=== PATIENT | female | born 1930 | race African-American/Black ===

== ENCOUNTER 2017-04-06 22:25 | Emergency (ER) | payer MEDICARE, MEDICAID ==
[~2017-04-06] VITALS: Ht 160 cm; Wt 45.4 kg
[~2017-04-06 22:25] MED LIST: ALPR0.25 PO; ASPI81CH43 PO; CEPH-37 PO; CITA10TA59 PO; CYAN500T2 PO; DONE10TA12 PO; FLUC200T35 PO; MEMA10TA PO; QUET50TA PO; RISP0.2512 PO
[2017-04-07 07:38] VITALS: BP 135/64
== END 2017-04-07 09:14 | disposition home or self-care (01) ==
LOC: EDBD 22:25 → ER 22:32
DX: S43.102A Unspecified dislocation of left acromioclavicular joint, initial encounter (principal); I25.10 Atherosclerotic heart disease of native coronary artery without angina pectoris; I25.2 Old myocardial infarction; G30.9 Alzheimer's disease, unspecified; F02.80 Dementia in other diseases classified elsewhere, unspecified severity, without behavioral disturbance, psychotic disturbance, mood disturbance, and anxiety; Z79.82 Long term (current) use of aspirin; X58.XXXA Exposure to other specified factors, initial encounter; Y93.89 Activity, other specified; Y92.89 Other specified places as the place of occurrence of the external cause; Y99.8 Other external cause status
CPT/HCPCS: 73030

== ENCOUNTER 2017-08-02 18:50 | Emergency (ER) | payer MEDICARE, MEDICAID ==
[~2017-08-02] VITALS: Ht 170.2 cm; Wt 70.3 kg
[2017-08-02 23:17] LABS: Basophils # (auto) 0.1 uL; Basophils % (auto) 1.4 % (0.0-2.0); Eosinophils # (auto) 0.1 uL; Eosinophils % (auto) 0.7 % (0.0-7.0); Hemoglobin 13.8 g/dL (12.2-16.2); Lymphocytes # (auto) 2.1 uL; Lymphocytes % (auto) 27.6 % (10.0-50.0); Mean Corpuscular Hemoglobin 30.6 pg (28.0-32.0); Mean Corpuscular Hgb Conc. 32.9 g/dL (32.0-36.0); Mean Corpuscular Volume 93.2 fL (80.0-100.0); Monocytes # (auto) 0.6 uL; Monocytes % (auto) 7.4 % (0.0-12.0); Neutrophils # (auto) 4.8 uL; Neutrophils % (auto) 62.9 % (37.0-80.0); Nucleated Red Blood Cells % 0.1 %; Platelet Count (auto) 271 10^3/uL (140-450); Red Blood Cells 4.51 10^6/uL (4.0-5.20); Red Cell Distribution Width 15.5 % (11.8-14.3); White Blood Cell 7.6 10^3/uL (4.4-10.8)
[2017-08-02 23:28] LABS: Partial Thromboplastin Time 27.6 sec (23.78-33.04); Prothrombin Time 10.7 sec (9.27-12.13)
[2017-08-02 23:34] LABS: Alanine Aminotransferase 26 U/L (13-56); Albumin 3.5 g/dL (3.4-5.0); Anion Gap 11 (5-15); Aspartate Aminotransferase 23 U/L (15-37); BUN/Creatinine Ratio 38.6; Blood Urea Nitrogen 27 mg/dL (7-18); Calcium 8.3 mg/dL (8.5-10.1); Carbon Dioxide 21 mmol/L (21-32); Chloride 110 mmol/L (98-107); GFR African American 102 mL/min; GFR Non-African American 84 mL/min; Glucose 88 mg/dL (74-106); Potassium 4.1 mmol/L (3.5-5.1); Sodium 142 mmol/L (136-145)
[2017-08-02 23:36] LABS: Alkaline Phosphatase 134 U/L (45-117); Bilirubin, Total 0.3 mg/dL (0.2-1.0); Total Protein 7.6 g/dL (6.4-8.2)
[2017-08-03 00:47] LABS: Urine Bacteria NONE SEEN /hpf (None Seen); Urine Blood Negative /uL (Negative); Urine Mucus FEW (None Seen); Urine Specific Gravity 1.026 (1.001-1.035); Urine WBC 2 /hpf (0 - 5)
[2017-08-03 08:00] VITALS: BP 129/49
== END 2017-08-03 08:35 | disposition home or self-care (01) ==
LOC: ER 18:50
DX: S90.32XA Contusion of left foot, initial encounter (principal); S50.02XA Contusion of left elbow, initial encounter; S70.02XA Contusion of left hip, initial encounter; F02.80 Dementia in other diseases classified elsewhere, unspecified severity, without behavioral disturbance, psychotic disturbance, mood disturbance, and anxiety; I25.10 Atherosclerotic heart disease of native coronary artery without angina pectoris; Z79.82 Long term (current) use of aspirin; Z90.49 Acquired absence of other specified parts of digestive tract; S51.012A Laceration without foreign body of left elbow, initial encounter; X58.XXXA Exposure to other specified factors, initial encounter; Y93.89 Activity, other specified; Y92.89 Other specified places as the place of occurrence of the external cause; Y99.8 Other external cause status
CPT/HCPCS: 36415; 51702; 72131; 73070; 73630; 73700; 80053; 81001; 83735; 83880; 84484; 85025; 85610; 85730

== ENCOUNTER 2018-04-03 08:33 | Emergency (ER) | payer MEDICARE, MEDICAID ==
[~2018-04-03 08:33] MED LIST changes: -CEPH-37 PO; -DONE10TA12 PO; -FLUC200T35 PO
[2018-04-03 11:01] LABS: Basophils # (auto) 0.1 uL; Basophils % (auto) 0.7 % (0.0-2.0); Eosinophils # (auto) 0.1 uL; Eosinophils % (auto) 0.7 % (0.0-7.0); Hematocrit 38.3 % (36.0-46.0); Hemoglobin 12.5 g/dL (12.2-16.2); Lymphocytes # (auto) 1.3 uL; Lymphocytes % (auto) 12.8 % (10.0-50.0); Mean Corpuscular Hemoglobin 29.9 pg (28.0-32.0); Mean Corpuscular Hgb Conc. 32.7 g/dL (32.0-36.0); Mean Corpuscular Volume 91.4 fL (80.0-100.0); Monocytes # (auto) 0.9 uL; Monocytes % (auto) 8.9 % (0.0-12.0); Neutrophils # (auto) 7.9 uL; Neutrophils % (auto) 76.9 % (37.0-80.0); Nucleated Red Blood Cells % 0.1 %; Platelet Count (auto) 365 10^3/uL (140-450); Red Blood Cells 4.19 10^6/uL (4.0-5.20); Red Cell Distribution Width 14.6 % (11.8-14.3); White Blood Cell 10.3 10^3/uL (4.4-10.8)
[2018-04-03 11:18] LABS: Anion Gap 4 (5-15); BUN/Creatinine Ratio 15.8; Blood Urea Nitrogen 12 mg/dL (7-18); Calcium 8.3 mg/dL (8.5-10.1); Carbon Dioxide 26 mmol/L (21-32); Chloride 108 mmol/L (98-107); GFR African American > 60 mL/min; GFR Non-African American > 60 mL/min; Glucose 124 mg/dL (74-106); Potassium 3.8 mmol/L (3.5-5.1); Sodium 138 mmol/L (136-145)
[2018-04-03 12:15] VITALS: BP 103/62
== END 2018-04-03 12:31 | disposition home or self-care (01) ==
LOC: ER 08:33 → EDBD 08:33 → EDUNIT# 08:33 → ER 12:31
DX: R22.31 Localized swelling, mass and lump, right upper limb (principal); G30.9 Alzheimer's disease, unspecified; F02.80 Dementia in other diseases classified elsewhere, unspecified severity, without behavioral disturbance, psychotic disturbance, mood disturbance, and anxiety; F41.9 Anxiety disorder, unspecified; F32.9 Major depressive disorder, single episode, unspecified; I10 Essential (primary) hypertension; Z88.1 Allergy status to other antibiotic agents; Z88.8 Allergy status to other drugs, medicaments and biological substances; Z79.82 Long term (current) use of aspirin; Z79.899 Other long term (current) drug therapy; Z90.49 Acquired absence of other specified parts of digestive tract
CPT/HCPCS: 36415; 80048; 85025; 93971

== ENCOUNTER 2018-05-07 10:41 | Inpatient (IN) | payer MEDICARE, MEDICAID | END 2018-05-10 21:20 | disposition home or self-care (01) | LOC: ER 10:41 → OVERFLOW 17:23 → CENTRAL 20:04 | DX: L03.113 Cellulitis of right upper limb (principal); G93.41 Metabolic encephalopathy; E44.0 Moderate protein-calorie malnutrition; N39.0 Urinary tract infection, site not specified; I10 Essential (primary) hypertension; D64.9 Anemia, unspecified; F02.80 Dementia in other diseases classified elsewhere, unspecified severity, without behavioral disturbance, psychotic disturbance, mood disturbance, and anxiety; G30.1 Alzheimer's disease with late onset; Z74.01 Bed confinement status ==

== ENCOUNTER 2018-05-19 23:32 | Emergency (ER) | payer MEDICARE, MEDICAID ==
[~2018-05-19] VITALS: Ht 165.1 cm; Wt 77.1 kg
[~2018-05-19 23:32] MED LIST changes: +APIX5TAB OR; -QUET50TA PO
[2018-05-20 03:31] LABS: Basophils # (auto) 0.1 uL; Eosinophils # (auto) 0.1 uL; Hemoglobin 9.6 g/dL (12.2-16.2); Monocytes # (auto) 0.8 uL; Red Blood Cells 3.31 10^6/uL (4.0-5.20)
[2018-05-20 03:33] LABS: Basophils % (auto) 1.3 % (0.0-2.0); Eosinophils % (auto) 1.2 % (0.0-7.0); Hematocrit 30.2 % (36.0-46.0); Lymphocytes # (auto) 1.7 uL; Lymphocytes % (auto) 18.4 % (10.0-50.0); Mean Corpuscular Hgb Conc. 31.7 g/dL (32.0-36.0); Mean Corpuscular Volume 91.3 fL (80.0-100.0); Monocytes % (auto) 9.2 % (0.0-12.0); Neutrophils # (auto) 6.3 uL; Neutrophils % (auto) 69.9 % (37.0-80.0); Platelet Count (auto) 506 10^3/uL (140-450)
[2018-05-20 03:41] LABS: INR 1.11 (0.9-1.15); Partial Thromboplastin Time 37.3 sec (23.78-33.04); Prothrombin Time 11.8 sec (9.27-12.13)
[2018-05-20 03:43] LABS: Albumin 2.7 g/dL (3.4-5.0); Calcium 8.4 mg/dL (8.5-10.1); Potassium 3.7 mmol/L (3.5-5.1)
[2018-05-20 03:48] LABS: BUN/Creatinine Ratio 36.5; Bilirubin, Total 0.6 mg/dL (0.2-1.0)
[2018-05-20 03:56] VITALS: BP 130/62
== END 2018-05-20 05:48 | disposition home or self-care (01) ==
LOC: EDBD 23:32 → ER 23:38
DX: S76.012A Strain of muscle, fascia and tendon of left hip, initial encounter (principal); I82.4Z2 Acute embolism and thrombosis of unspecified deep veins of left distal lower extremity; G30.9 Alzheimer's disease, unspecified; F02.80 Dementia in other diseases classified elsewhere, unspecified severity, without behavioral disturbance, psychotic disturbance, mood disturbance, and anxiety; I10 Essential (primary) hypertension; E86.0 Dehydration; Z88.1 Allergy status to other antibiotic agents; Z88.8 Allergy status to other drugs, medicaments and biological substances; Z79.82 Long term (current) use of aspirin; Z79.899 Other long term (current) drug therapy; Z90.49 Acquired absence of other specified parts of digestive tract; X50.9XXA Other and unspecified overexertion or strenuous movements or postures, initial encounter; Y93.89 Activity, other specified; Y99.8 Other external cause status; Y92.89 Other specified places as the place of occurrence of the external cause
CPT/HCPCS: 36415; 73502; 80053; 85025; 85610; 85730; 93971; 94761

== ENCOUNTER 2018-06-21 21:24 | Inpatient (IN) | payer MEDICARE, MEDICAID ==
[~2018-06-21] VITALS: Ht 162.6 cm; Wt 70.0 kg
[2018-06-21 23:20] LABS: Eosinophils # (auto) 0.1 uL; Monocytes # (auto) 0.8 uL
[2018-06-21 23:22] LABS: Basophils # (auto) 0 uL; Basophils % (auto) 0.5 % (0.0-2.0); Eosinophils % (auto) 1.2 % (0.0-7.0); Hemoglobin 13.1 g/dL (12.2-16.2); Lymphocytes # (auto) 1.4 uL; Lymphocytes % (auto) 14.6 % (10.0-50.0); Mean Corpuscular Hemoglobin 27.9 pg (28.0-32.0); Mean Corpuscular Hgb Conc. 31.2 g/dL (32.0-36.0); Mean Corpuscular Volume 89.4 fL (80.0-100.0); Monocytes % (auto) 8.8 % (0.0-12.0); Neutrophils % (auto) 74.9 % (37.0-80.0); Platelet Count (auto) 381 10^3/uL (140-450); Red Blood Cells 4.69 10^6/uL (4.0-5.20); Red Cell Distribution Width 18.2 % (11.8-14.3); White Blood Cell 9.4 10^3/uL (4.4-10.8)
[2018-06-21 23:37] LABS: INR 1.1 (0.9-1.15); Partial Thromboplastin Time 30.3 sec (23.78-33.04); Prothrombin Time 11.7 sec (9.27-12.13)
[2018-06-21 23:38] LABS: Albumin 3.1 g/dL (3.4-5.0); Anion Gap 7 (5-15); Calcium 8.6 mg/dL (8.5-10.1); Carbon Dioxide 25 mmol/L (21-32); Chloride 125 mmol/L (98-107); Glucose 96 mg/dL (74-106); Potassium 3.2 mmol/L (3.5-5.1); Sodium 157 mmol/L (136-145)
[2018-06-21 23:44] LABS: Alanine Aminotransferase 29 U/L (13-56); Alkaline Phosphatase 200 U/L (45-117); Aspartate Aminotransferase 39 U/L (15-37); BUN/Creatinine Ratio 24.4; Bilirubin, Total 0.3 mg/dL (0.2-1.0); Blood Urea Nitrogen 22 mg/dL (7-18); GFR African American 76 mL/min; GFR Non-African American 63 mL/min; Total Protein 7.9 g/dL (6.4-8.2)
[2018-06-22] MEDS ORDERED: LEVOFLOXACIN 500MG 100 ML IV ONE
[2018-06-22] MEDS ORDERED: SODIUM CHLORIDE 0.9% 1,000 ML IV ONE
[2018-06-22 02:14] LABS: Urine Bacteria NONE SEEN /hpf (None Seen); Urine Blood Negative /uL (Negative); Urine Mucus FEW (None Seen); Urine Specific Gravity 1.026 (1.001-1.035); Urine WBC 1 /hpf (0 - 5)
[2018-06-22 02:27] LABS: Alcohol, Urine < 3.0 mg/dL (0-5); Amphetamine Screen, Urine NEGATIVE (NEGATIVE); Barbiturate Scree,Urine NEGATIVE (NEGATIVE); Benzodiazephine Screen, Urine NEGATIVE (NEGATIVE); Cannabinoid Screen, Urine NEGATIVE (NEGATIVE); Cocaine Screen, Urine NEGATIVE (NEGATIVE); Opiate Scree,Urine NEGATIVE (NEGATIVE); Phencyclidine Screen, Urine NEGATIVE (NEGATIVE)
[2018-06-22 04:44] LABS: BUN/Creatinine Ratio 33.8; Calcium 7.9 mg/dL (8.5-10.1); Potassium 3.4 mmol/L (3.5-5.1)
[2018-06-22 05:00] LABS: Basophils # (auto) 0 uL; Basophils % (auto) 0.5 % (0.0-2.0); Eosinophils # (auto) 0.1 uL; Eosinophils % (auto) 1.6 % (0.0-7.0); Hematocrit 40.2 % (36.0-46.0); Hemoglobin 12.1 g/dL (12.2-16.2); Lymphocytes # (auto) 1.3 uL; Lymphocytes % (auto) 13.5 % (10.0-50.0); Mean Corpuscular Hemoglobin 27.7 pg (28.0-32.0); Mean Corpuscular Hgb Conc. 30.1 g/dL (32.0-36.0); Monocytes # (auto) 0.9 uL; Monocytes % (auto) 9.2 % (0.0-12.0); Neutrophils % (auto) 75.2 % (37.0-80.0); Nucleated Red Blood Cells % 0.1 %; Platelet Count (auto) 336 10^3/uL (140-450); Red Blood Cells 4.38 10^6/uL (4.0-5.20); White Blood Cell 9.3 10^3/uL (4.4-10.8)
[2018-06-22] MEDS ORDERED: traMADol HCL 50 MG TAB PO PRN (06:30)
[2018-06-22] MEDS ORDERED: ONDANSETRON HCL 4 MG/2 ML VIAL IV PRN (06:30)
[2018-06-22] MEDS: SOD CHL 0.45% 1,000 ML IV SCH ×2 (06:30→21:02)
[2018-06-22] MEDS ORDERED: ACETAMINOPHEN 325 MG TAB PO PRN (06:30)
[2018-06-22] MEDS: LEVOTHYROXINE SODIUM 25 MCG TAB PO SCH (07:00)
[2018-06-22] MEDS: cefTRIAXone 1GM/50ML D5W 50 ML IV SCH (09:21)
[2018-06-22] MEDS: MEMANTINE HCL 5 MG TAB PO SCH ×2 (10:00→21:02)
[2018-06-22] MEDS ORDERED: APIXABAN 5 MG TAB PO SCH (10:00)
--- NOTE | 2018-06-22 12:58 | NUR ---
WOUND CARE NOTE: Wound care in to see patient per wound care request regarding multiple skin integrity issue that are noted present on admission. ED nurse took photograph of patient's wounds upon admission for reference. Patient is 88 y/o female with admitting diagnosis of ALOC. Patient has history of Dementia, OR, htn, Alzheimer,UTI. Patient is resting in ER bed #1. Patient is awake and non-verbal. Patient appears to be in no pain using Arteaga Garcia Faces Pain Scale. Patient is bed bound and needs assistance in turning and repositioning. Her current Jameel score is 12. Noted patient's sacrum has large pink collagen scar tissue with 2.5x2.5 cm open full thickness ulceration to medial sacrum, no measurable depth. Wound bed is red/pale pink with ashraf slough, abhi wound is dark red, minimal serous drainage noted, no odor noted. Sacral pressure injury is consistent with Stage 3 pressure injury. She has intact skin with 4x2cm non-blanchable redness w/ serum filled blister to R knee consistent with Stage 2 pressure injury. Cleansed sacral and R knee pressure injury with mild soap and water, patted dry with sterile gauze, applied Z Guard cream and covered wounds with Opti foam gentle dressing. 0.5x0.5cm dry scabbed wound noted to patient's Rt lateral ankle and R dorsal foot. Unstageable pressure injury noted to patient's L medial heel measuring 3x2.5 cm no measurable depth. Wound bed is 40% red with granulation tissue,60% black eschar, abhi wound is pink and red, minimal serosanguineous drainage noted, no odor noted. Cleansed sacral and L heel wound with wound cleanser, patted dry with sterile gauze, applied Thera honey gel, covered wounds with Opti foam, wrapped with Kerlix and secured with tape. Patient's Rt heel has large pink collagen scar tissue with blanchable redness, area is clean and dry,left open to air. Repositioned patient for comfort facing her Lt side, redistributed pressure points with pillows. Bed in lowest position with all safety precautions in placed. RECOMMENDATION: Daily/PRN dressing change to L heel and R knee pressure injuries, BID/PRN dressing change to sacral wound per MD order, dietary consult , frequent turning and repositioning schedule as condition permits, redistribute pressure points with pillows,air mattress (ordered), [place] foam boots to BLE/elevate heels on pillows, continue monitoring by wound care while patient is hospitalized. Addendum: 06/22/18 at 1528 by Pam Grey RN Amended: Links added.
--- NOTE | 2018-06-22 15:34 | NUR ---
SWALLOW EVALUATED IN THE EMERGENCY DEPARTMENT. PATIENT HAS NO TEETH OR DENTURES. PATIENT ALOC. PATIENT ABLE TO TOLERATE PUREE DIET TEXTURE WITH THIN LIQUIDS WITH NO OVERT SIGNS OR SYMPTOMS OF ASPIRATION. NURSING NOTIFIED.
[2018-06-22 17:30] VITALS: BP 115/78
--- NOTE | 2018-06-22 17:30 | NUR ---
Obtain patient's info from the chart due to patient is non verbal and there is no family at bedside.
[2018-06-22 17:36] VITALS: BP 115/78
--- NOTE | 2018-06-22 17:38 | NUR ---
MS admit from ER [facility] admitted to tele/MS after SBAR received. Patient oriented to RONNIE SCALES, primary RN, unit, room, bed, and unit policies regarding patient care and visiting hours. Patient weighed by bed scale and encouraged to call if they need something. All questions and concerns addressed, patient verbalized understanding.
--- NOTE | 2018-06-22 19:00 | NUR ---
OPENING NOTE Received report from day shift RN. Patient is in bed with no s/s of distress noted. Patient was fed dinner at this time. Patient consumed about 50% and tolerated dinner well. Repositioned patient from back to right side at this time. Bed is in lowest/locked position with side rails up X's 2. Will continue to monitor for changes and round hourly/PRN.
[2018-06-22] MEDS: ENOXAPARIN SOD 60 MG/0.6 ML SYRINGE SC SCH (21:03)
[2018-06-22 22:00] VITALS: BP 121/68
--- NOTE | 2018-06-22 22:50 | NUR ---
SPOKE WITH PATIENT'S SON. Spoke with patient's son at this time. Updated patient's son on POC and all questions were answered.
[2018-06-23 05:00] VITALS: BP 132/58
[2018-06-23 06:05] LABS: Anion Gap 6 (5-15); Blood Urea Nitrogen 16 mg/dL (7-18); Carbon Dioxide 20 mmol/L (21-32); Chloride 125 mmol/L (98-107); GFR African American 150 mL/min; GFR Non-African American 124 mL/min; Glucose 65 mg/dL (74-106); Potassium 3.1 mmol/L (3.5-5.1); Sodium 151 mmol/L (136-145)
[2018-06-23 06:11] LABS: Basophils # (auto) 0 uL; Basophils % (auto) 0.6 % (0.0-2.0); Eosinophils # (auto) 0.2 uL; Eosinophils % (auto) 3.4 % (0.0-7.0); Hematocrit 39.4 % (36.0-46.0); Lymphocytes % (auto) 15.9 % (10.0-50.0); Mean Corpuscular Hemoglobin 27.1 pg (28.0-32.0); Mean Corpuscular Hgb Conc. 27.9 g/dL (32.0-36.0); Mean Corpuscular Volume 97.2 fL (80.0-100.0); Monocytes # (auto) 0.5 uL; Monocytes % (auto) 7.4 % (0.0-12.0); Neutrophils # (auto) 4.5 uL; Neutrophils % (auto) 72.7 % (37.0-80.0); Platelet Count (auto) 271 10^3/uL (140-450); Red Blood Cells 4.06 10^6/uL (4.0-5.20); Red Cell Distribution Width 18.5 % (11.8-14.3); White Blood Cell 6.2 10^3/uL (4.4-10.8)
[2018-06-23] MEDS: LEVOTHYROXINE SODIUM 25 MCG TAB PO SCH (06:50)
[2018-06-23 08:00] VITALS: BP 131/65
[2018-06-23 08:26] VITALS: BP 131/65
[2018-06-23] MEDS: cefTRIAXone 1GM/50ML D5W 50 ML IV SCH (08:55)
[2018-06-23] MEDS: SOD CHL 0.45% 1,000 ML IV SCH ×2 (08:55→22:43)
[2018-06-23] MEDS: MEMANTINE HCL 5 MG TAB PO SCH ×2 (09:06→22:42)
[2018-06-23] MEDS: ENOXAPARIN SOD 60 MG/0.6 ML SYRINGE SC SCH ×2 (09:07→22:43)
--- NOTE | 2018-06-23 10:30 | NUR ---
patient left to laborer general for left heart cath
[2018-06-23] MEDS: POTASSIUM CHL 20MEQ/100ML 100 ML IV SCH ×2 (11:10→11:49)
--- NOTE | 2018-06-23 11:53 | NUR ---
NUTRITION CONSULT/ASSESSMENT NOTES Please refer to link notes of nutrition screen form filed under the intervention section of the plan of care for further details. Est. Needs: 1550 kcal to 1850 kcal (25-30 kcal/kgBW), 61 gms to 73 gms pro (1.0-1.3 gms/kgBW for wound healing). Will continue to monitor pertinent labs and reassess nutrient need prn Thank you for this consult. Addendum: 06/23/18 at [address] Amended: Links added.
--- NOTE | 2018-06-23 12:02 | NUR ---
disregard heart cath note. not applicable
[2018-06-23 12:14] VITALS: BP 125/55
--- NOTE | 2018-06-23 15:09 | NUR ---
Pt is a confused, nonverbal female that is reported to be living with her son, Reinaldo. Son is not present at bedside and did not answer call. Will confirm pt's current and d/c needs with son. Pt potentially needing IV ABX therapy post discharge. Will discuss with son regarding option of home health vs. SNF for ABX therapy. Addendum: 06/23/18 at 1511 by MASTER SAENZ Amended: Links added.
--- NOTE | 2018-06-23 16:40 | NUR ---
PICC line placement Patient/Patient significant other educated on need for PICC line placement. All risks and benefits explained and all questions and concerns addressed prior to procedure. Noted past medical history and allergies with no contraindications. INR and Plt counts within acceptable range. 4 fr PICC line inserted via left basilic vein using [employer] US and Tip Location System. Sterile technique with maximum barrier precautions utilized. Blood return obtained from the lumen and flushed easily with NS using proper technique. PICC secured with Stat-lock; biodisc and occlusive dressing applied. Stat portable chest x-ray obtained for PICC tip placement. *Baseline Arm Circumference 26cm. Internal length 39cm. External length 0cm. PICC lot # [id number]. Note: Placed easily x1 attempt
[2018-06-23] MEDS ORDERED: LIDOCAINE 1% (LOCAL ANESTH.) PF 5ml SDV ID ONE (16:45)
[2018-06-23 17:25] VITALS: BP 135/62
[2018-06-23 22:00] VITALS: BP 131/70
[2018-06-23] MEDS: SODIUM CHLOR 0.9% PF (SALINE LOCK) 10ML VIAL/SYR IV SCH (22:42)
[2018-06-23] MEDS: DAKINS QUARTER STR 0.125% (NaHypochlorite) 473 ML TOPICAL SOL TOP SCH (22:43)
[2018-06-24] VITALS (7 sets, daily range): BP systolic 120–142; BP diastolic 53–80
--- NOTE | 2018-06-24 04:10 | NUR ---
Dressings changed Right knee, Sacrum and Left foot dressings changed and dressed per md order.
[2018-06-24 05:34] LABS: Eosinophils # (auto) 0.2 uL; Lymphocytes # (auto) 1.1 uL; Monocytes # (auto) 0.5 uL; Neutrophils # (auto) 4.5 uL; Neutrophils % (auto) 71.2 % (37.0-80.0)
[2018-06-24 05:36] LABS: Basophils # (auto) 0.1 uL; Basophils % (auto) 0.8 % (0.0-2.0); Eosinophils % (auto) 2.5 % (0.0-7.0); Hematocrit 38.4 % (36.0-46.0); Hemoglobin 11.8 g/dL (12.2-16.2); Lymphocytes % (auto) 18.1 % (10.0-50.0); Mean Corpuscular Hemoglobin 27.8 pg (28.0-32.0); Mean Corpuscular Hgb Conc. 30.8 g/dL (32.0-36.0); Mean Corpuscular Volume 90.2 fL (80.0-100.0); Monocytes % (auto) 7.4 % (0.0-12.0); Platelet Count (auto) 290 10^3/uL (140-450); Red Blood Cells 4.26 10^6/uL (4.0-5.20); Red Cell Distribution Width 17.3 % (11.8-14.3); White Blood Cell 6.3 10^3/uL (4.4-10.8)
[2018-06-24 05:54] LABS: BUN/Creatinine Ratio 23.4; Potassium 3.4 mmol/L (3.5-5.1)
[2018-06-24] MEDS: LEVOTHYROXINE SODIUM 25 MCG TAB PO SCH (06:14)
[2018-06-24] MEDS: cefTRIAXone 1GM/50ML D5W 50 ML IV SCH (09:18)
[2018-06-24] MEDS: MEMANTINE HCL 5 MG TAB PO SCH ×2 (09:19→22:51)
[2018-06-24] MEDS: ENOXAPARIN SOD 60 MG/0.6 ML SYRINGE SC SCH ×2 (09:19→22:51)
[2018-06-24] MEDS: SODIUM CHLOR 0.9% PF (SALINE LOCK) 10ML VIAL/SYR IV SCH ×2 (09:19→22:51)
[2018-06-24] MEDS: DAKINS QUARTER STR 0.125% (NaHypochlorite) 473 ML TOPICAL SOL TOP SCH ×2 (09:20→22:52)
[2018-06-24] MEDS: SOD CHL 0.45% 1,000 ML IV SCH (11:50)
--- NOTE | 2018-06-24 19:17 | NUR ---
Opening Shift Note Assumed care of patient, awake and alert. No S/S of distress/SOB or pain. Instructed on POC and to call for assist as needed. Pt currently in bed with the rails up x2 and bed locked in lowest position. Call light is within reach. Will continue to monitor.
[2018-06-25] MEDS: SOD CHL 0.45% 1,000 ML IV SCH (00:12)
[2018-06-25 04:42] LABS: Basophils # (auto) 0 uL; Basophils % (auto) 0.5 % (0.0-2.0); Eosinophils # (auto) 0.1 uL; Eosinophils % (auto) 1.8 % (0.0-7.0); Hematocrit 35.2 % (36.0-46.0); Hemoglobin 11.1 g/dL (12.2-16.2); Lymphocytes % (auto) 15.4 % (10.0-50.0); Mean Corpuscular Hemoglobin 27.8 pg (28.0-32.0); Mean Corpuscular Hgb Conc. 31.5 g/dL (32.0-36.0); Mean Corpuscular Volume 88.3 fL (80.0-100.0); Monocytes # (auto) 0.6 uL; Monocytes % (auto) 8.5 % (0.0-12.0); Neutrophils # (auto) 4.9 uL; Neutrophils % (auto) 73.8 % (37.0-80.0); Platelet Count (auto) 276 10^3/uL (140-450); Red Blood Cells 3.99 10^6/uL (4.0-5.20); Red Cell Distribution Width 17.4 % (11.8-14.3); White Blood Cell 6.6 10^3/uL (4.4-10.8)
[2018-06-25 05:00] VITALS: BP 145/66
[2018-06-25 05:02] LABS: BUN/Creatinine Ratio 14.9; Calcium 7.8 mg/dL (8.5-10.1); Potassium 3.1 mmol/L (3.5-5.1)
[2018-06-25] MEDS: LEVOTHYROXINE SODIUM 25 MCG TAB PO SCH (06:19)
[2018-06-25 08:00] VITALS: BP 146/86
[2018-06-25 09:00] VITALS: BP 146/86
[2018-06-25] MEDS: cefTRIAXone 1GM/50ML D5W 50 ML IV SCH (09:12)
[2018-06-25] MEDS: ENOXAPARIN SOD 60 MG/0.6 ML SYRINGE SC SCH ×2 (09:13→22:09)
[2018-06-25] MEDS: MEMANTINE HCL 5 MG TAB PO SCH ×2 (09:13→22:08)
[2018-06-25] MEDS: SODIUM CHLOR 0.9% PF (SALINE LOCK) 10ML VIAL/SYR IV SCH ×2 (09:15→22:08)
[2018-06-25] MEDS: DAKINS QUARTER STR 0.125% (NaHypochlorite) 473 ML TOPICAL SOL TOP SCH (09:18)
[2018-06-25] MEDS: POTASSIUM CHL 20MEQ/100ML 100 ML IV SCH ×2 (09:53→10:50)
[2018-06-25] MEDS: SODIUM CHLORIDE 0.9% 1,000 ML IV SCH ×2 (10:51→22:09)
--- NOTE | 2018-06-25 11:47 | NUR ---
SS consult for placement for IV antibiotics. Per son Mahamed is refused the SND placement due to a history of bad experience. Pt's son is requesting home health through [facility] for antibiotic therapy. IVANNA Mondragon notified to contact MD to change order.
[2018-06-25 13:00] VITALS: BP 132/60
--- NOTE | 2018-06-25 15:17 | NUR ---
wound dressing for left heal changed
[2018-06-25 17:00] VITALS: BP 137/63
[2018-06-25 21:33] VITALS: BP 149/83
[2018-06-25] MEDS: POTASSIUM CHL 10% (20 MEQ/15ML) 15ml ORAL SOLN PO SCH (22:08)
[2018-06-26] MEDS: LEVOTHYROXINE SODIUM 25 MCG TAB PO SCH (06:24)
[2018-06-26 08:00] VITALS: BP 147/71
[2018-06-26 09:00] VITALS: BP 147/71
[2018-06-26] MEDS: POTASSIUM CHL 10% (20 MEQ/15ML) 15ml ORAL SOLN PO SCH (09:07)
[2018-06-26] MEDS: cefTRIAXone 1GM/50ML D5W 50 ML IV SCH (09:07)
[2018-06-26] MEDS: SODIUM CHLOR 0.9% PF (SALINE LOCK) 10ML VIAL/SYR IV SCH ×2 (09:07→22:24)
[2018-06-26] MEDS: MEMANTINE HCL 5 MG TAB PO SCH ×2 (09:07→22:24)
[2018-06-26] MEDS: ENOXAPARIN SOD 60 MG/0.6 ML SYRINGE SC SCH ×2 (09:08→22:24)
[2018-06-26] MEDS: DAKINS QUARTER STR 0.125% (NaHypochlorite) 473 ML TOPICAL SOL TOP SCH (09:08)
--- NOTE | 2018-06-26 10:37 | NUR ---
o2 LEVEL CHECK ON PULSE OX ON ROOM AIR. PATIENT o2 LEVEL 95% ON ROOM AIR
[2018-06-26] MEDS ORDERED: DAPTOmycin 500 MG in SODIUM CHL 0.9% 50 ML IV SCH (11:00)
[2018-06-26] MEDS: SODIUM CHLORIDE 0.9% 1,000 ML IV SCH (11:28)
[2018-06-26] MEDS ORDERED: CEFEPIME HYDROCHLORIDE 2 GM in SODIUM CHL 0.9% 50 ML IV SCH (12:00)
[2018-06-26 13:00] VITALS: BP 113/79
--- NOTE | 2018-06-26 13:09 | NUR ---
Re-faxed home IV ATB order to [facility], also faxed home health order for IV ATB and for wound care to [facility].
--- NOTE | 2018-06-26 13:45 | NUR ---
I spoke with Veronika at [facility], she did receive the faxed order and will contact patient regarding delivery time.
--- NOTE | 2018-06-26 14:03 | NUR ---
I called [facility] [phone] and spoke with Ry, she said they are unable to accept this patient for home health at this time due to a shortage of RN's. I called [facility] and spoke with Veronika, she said they will reach out to home health agencies for the IV ATB as well as for the wound care.
--- NOTE | 2018-06-26 16:09 | NUR ---
I spoke with patient's son Reinaldo (cell [phone]), he stated the home address is [address] [place] [address].
--- NOTE | 2018-06-26 16:17 | NUR ---
I spoke with Donna at [facility] [phone], she said they will see patient tomorrow-they will be able to see patient for both the IV ATB and wound care-I relayed this information to nurse Mondragon.
--- NOTE | 2018-06-26 16:43 | NUR ---
I spoke with Donna at [facility], I faxed her wound care order for left foot (per podiatry).
[2018-06-26 16:58] VITALS: BP 102/45
--- NOTE | 2018-06-26 18:26 | NUR ---
DRESSING CHANGE TO THE LEFT HEAL.
--- NOTE | 2018-06-26 19:35 | NUR ---
Assisted dayshift IVANNA Mondragon take discharge wound photo, had a bowel movement cleansed and placed new Optifoam Gentle Sacral dressing. Awaiting for son to mushroom picker the patient.
--- NOTE | 2018-06-26 21:32 | NUR ---
Spoke to son Reinaldo re: discharge. Per son he cannot take home his mother without transport because he doesn't want to take risk of injuring his mother. RN and son tried calling [facility] needs prior arrangement during office hour, [facility] with $250 payment. Son Reinaldo called patient's PCP Dr. Elli Still, per son the PCP states leave the patient in the hospital and arrange transportation tomorrow. RN will call hospitalist to get a social service consult for transport.
[2018-06-26 22:25] VITALS: BP 98/55
--- NOTE | 2018-06-27 00:02 | NUR ---
Patient Rounding Awake right now watching TV, not in distress, no pain.
[2018-06-27] MEDS: SODIUM CHLORIDE 0.9% 1,000 ML IV SCH (01:41)
[2018-06-27 05:31] VITALS: BP 132/52
[2018-06-27] MEDS: LEVOTHYROXINE SODIUM 25 MCG TAB PO SCH (06:45)
[2018-06-27 09:00] VITALS: BP 139/63
--- NOTE | 2018-06-27 09:49 | NUR ---
Discharge instructions given as ordered. Encourage to follow up with PMD as instructed. All questions and concerns addressed. Patient verbalized understanding. Medication reconciliation form completed and copy given to patient. IV removed with catheter intact, pressure dressing applied, Patient taken to vehicle via wheelchair with all personal belongings, accompanied by staff and family member. No distress noted at time of departure.
== END 2018-06-27 11:04 | disposition home health service (06) | DRG 463 ==
LOC: EDUNIT# 21:24 → ER 21:24 → EDBD 21:24 → TELE 06-22 06:33 → TELE-CENTR 06-22 17:31 → CENTRAL 06-23 03:28
PROVIDERS: ADMIT Nurse Practitioner Family; ATTEND Family Medicine
PROC: 02HV33Z Insertion of Infusion Device into Superior Vena Cava, Percutaneous Approach (ICD-10-PCS; 2018-06-23)
PROC: 0JBR0ZZ Excision of Left Foot Subcutaneous Tissue and Fascia, Open Approach (ICD-10-PCS; principal; 2018-06-24)
DX: M86.8X7 Other osteomyelitis, ankle and foot (principal); G93.41 Metabolic encephalopathy; L89.893 Pressure ulcer of other site, stage 3; L89.153 Pressure ulcer of sacral region, stage 3; E44.1 Mild protein-calorie malnutrition; E87.0 Hyperosmolality and hypernatremia; L97.429 Non-pressure chronic ulcer of left heel and midfoot with unspecified severity; I82.402 Acute embolism and thrombosis of unspecified deep veins of left lower extremity; E87.6 Hypokalemia; F02.80 Dementia in other diseases classified elsewhere, unspecified severity, without behavioral disturbance, psychotic disturbance, mood disturbance, and anxiety; I10 Essential (primary) hypertension; E03.9 Hypothyroidism, unspecified; E86.0 Dehydration; F32.9 Major depressive disorder, single episode, unspecified; F41.9 Anxiety disorder, unspecified; I25.10 Atherosclerotic heart disease of native coronary artery without angina pectoris; G30.9 Alzheimer's disease, unspecified; B96.5 Pseudomonas (aeruginosa) (mallei) (pseudomallei) as the cause of diseases classified elsewhere; B95.61 Methicillin susceptible Staphylococcus aureus infection as the cause of diseases classified elsewhere; B95.2 Enterococcus as the cause of diseases classified elsewhere; F17.200 Nicotine dependence, unspecified, uncomplicated; I48.91 Unspecified atrial fibrillation; L97.529 Non-pressure chronic ulcer of other part of left foot with unspecified severity; R62.7 Adult failure to thrive; Z74.01 Bed confinement status; Z68.26 Body mass index [BMI] 26.0-26.9, adult; Z88.1 Allergy status to other antibiotic agents; Z88.8 Allergy status to other drugs, medicaments and biological substances; Z86.73 Personal history of transient ischemic attack (TIA), and cerebral infarction without residual deficits; I25.2 Old myocardial infarction; Z79.01 Long term (current) use of anticoagulants; Z79.82 Long term (current) use of aspirin; Z86.718 Personal history of other venous thrombosis and embolism; Z98.891 History of uterine scar from previous surgery; Z90.49 Acquired absence of other specified parts of digestive tract; Z79.899 Other long term (current) drug therapy; L89.620 Pressure ulcer of left heel, unstageable
CPT/HCPCS: 36415; 36569; 70450; 71045; 73700; 80048; 80053; 80307; 81001; 82962; 83605; 83880; 84443; 84484; 85025; 85610; 85730; 87040; 87077; 87086; 87088; 87186; 87205; 92610; 93926; 93971; 94761; 96361; 96365; 96367; 99291; G0378; J0696; J1956; J3480

== ENCOUNTER 2018-07-12 09:34 | Emergency (ER) | payer MEDICARE, MEDICAID ==
[~2018-07-12] VITALS: Ht 157.5 cm; Wt 47.6 kg
[2018-07-12 10:33] LABS: Basophils # (auto) 0 uL; Basophils % (auto) 0.6 % (0.0-2.0); Eosinophils # (auto) 0.2 uL; Eosinophils % (auto) 3.4 % (0.0-7.0); Hematocrit 33.4 % (36.0-46.0); Hemoglobin 10.8 g/dL (12.2-16.2); Lymphocytes # (auto) 1.2 uL; Lymphocytes % (auto) 17.3 % (10.0-50.0); Mean Corpuscular Hemoglobin 27.2 pg (28.0-32.0); Mean Corpuscular Hgb Conc. 32.3 g/dL (32.0-36.0); Mean Corpuscular Volume 84.4 fL (80.0-100.0); Monocytes # (auto) 0.5 uL; Monocytes % (auto) 7.3 % (0.0-12.0); Neutrophils % (auto) 71.4 % (37.0-80.0); Platelet Count (auto) 245 10^3/uL (140-450); Red Blood Cells 3.96 10^6/uL (4.0-5.20); Red Cell Distribution Width 17.3 % (11.8-14.3); White Blood Cell 7.1 10^3/uL (4.4-10.8)
[2018-07-12 10:49] LABS: Alanine Aminotransferase 16 U/L (13-56); Albumin 2.8 g/dL (3.4-5.0); Anion Gap 6 (5-15); Aspartate Aminotransferase 21 U/L (15-37); Blood Urea Nitrogen 20 mg/dL (7-18); Calcium 8.3 mg/dL (8.5-10.1); Carbon Dioxide 25 mmol/L (21-32); Chloride 112 mmol/L (98-107); GFR African American 150 mL/min; GFR Non-African American 124 mL/min; Glucose 103 mg/dL (74-106); Magnesium 2.3 mg/dL (1.6-2.6); Potassium 3.3 mmol/L (3.5-5.1); Sodium 143 mmol/L (136-145)
[2018-07-12 10:52] LABS: Alkaline Phosphatase 163 U/L (45-117); Bilirubin, Total 0.2 mg/dL (0.2-1.0)
[2018-07-12 11:24] LABS: Urine Bacteria NONE SEEN /hpf (None Seen); Urine Blood TRACE /uL (Negative); Urine WBC 1 /hpf (0 - 5)
[2018-07-12 13:01] VITALS: BP 153/77
== END 2018-07-12 13:46 | disposition home or self-care (01) ==
LOC: ER 09:34 → EDBD 09:34 → ER 13:46
DX: K59.00 Constipation, unspecified (principal); Z88.8 Allergy status to other drugs, medicaments and biological substances; Z79.82 Long term (current) use of aspirin; Z79.899 Other long term (current) drug therapy; Z90.49 Acquired absence of other specified parts of digestive tract
CPT/HCPCS: 36415; 71045; 74176; 80053; 81001; 83735; 84484; 85025; 86850; 86900; 86901; 93005; 94761

== ENCOUNTER 2018-10-31 19:59 | Emergency (ER) | payer MEDICARE, MEDICAID ==
[~2018-10-31] VITALS: Ht 157.5 cm; Wt 63.5 kg
[~2018-10-31 19:59] MED LIST changes: -CYAN500T2 PO; +CYAN500T3 PO
[2018-10-31 22:58] LABS: Urine Bacteria NONE SEEN /hpf (None Seen); Urine Blood Negative /uL (Negative); Urine Specific Gravity 1.011 (1.001-1.035); Urine WBC <1 /hpf (0 - 5)
[2018-11-01 00:06] LABS: Basophils # (auto) 0 uL; Basophils % (auto) 0.7 % (0.0-2.0); Eosinophils # (auto) 0.3 uL; Eosinophils % (auto) 4.2 % (0.0-7.0); Hematocrit 34.5 % (36.0-46.0); Hemoglobin 11.2 g/dL (12.2-16.2); Lymphocytes # (auto) 1.3 uL; Mean Corpuscular Hemoglobin 27.3 pg (28.0-32.0); Mean Corpuscular Hgb Conc. 32.3 g/dL (32.0-36.0); Mean Corpuscular Volume 84.3 fL (80.0-100.0); Monocytes # (auto) 0.5 uL; Monocytes % (auto) 8.4 % (0.0-12.0); Neutrophils # (auto) 4.2 uL; Neutrophils % (auto) 66.7 % (37.0-80.0); Nucleated Red Blood Cells % 0.1 %; Platelet Count (auto) 258 10^3/uL (140-450); Red Blood Cells 4.09 10^6/uL (4.0-5.20); Red Cell Distribution Width 18.3 % (11.8-14.3); White Blood Cell 6.2 10^3/uL (4.4-10.8)
[2018-11-01 00:15] LABS: Albumin 2.8 g/dL (3.4-5.0); Anion Gap 9 (5-15); BUN/Creatinine Ratio 14.1; Blood Urea Nitrogen 14 mg/dL (7-18); Calcium 8.1 mg/dL (8.5-10.1); Carbon Dioxide 24 mmol/L (21-32); Chloride 109 mmol/L (98-107); GFR African American 68 mL/min; GFR Non-African American 56 mL/min; Glucose 104 mg/dL (74-106); Potassium 4.1 mmol/L (3.5-5.1); Sodium 142 mmol/L (136-145)
[2018-11-01 00:18] LABS: Alanine Aminotransferase 19 U/L (13-56); Alkaline Phosphatase 118 U/L (45-117); Aspartate Aminotransferase 17 U/L (15-37); Bilirubin, Total 0.1 mg/dL (0.2-1.0); Total Protein 6.4 g/dL (6.4-8.2)
[2018-11-01] MEDS ORDERED: LINEZOLID 600MG/300ML 300 ML IV SCH (01:45)
[2018-11-01 04:00] VITALS: BP 150/66
== END 2018-11-01 05:13 | disposition home or self-care (01) ==
LOC: ER 20:02
DX: T83.098A Other mechanical complication of other urinary catheter, initial encounter (principal); S50.02XA Contusion of left elbow, initial encounter; G30.9 Alzheimer's disease, unspecified; F02.81 Dementia in other diseases classified elsewhere, unspecified severity, with behavioral disturbance; F32.9 Major depressive disorder, single episode, unspecified; I10 Essential (primary) hypertension; Z90.49 Acquired absence of other specified parts of digestive tract; Z88.1 Allergy status to other antibiotic agents; Z79.899 Other long term (current) drug therapy; Z87.440 Personal history of urinary (tract) infections; X58.XXXA Exposure to other specified factors, initial encounter; Y93.89 Activity, other specified; Y92.89 Other specified places as the place of occurrence of the external cause; Y99.8 Other external cause status
CPT/HCPCS: 36415; 51702; 80053; 81001; 83605; 85025; 99284; J2020

== ENCOUNTER 2018-11-03 21:20 | Emergency (ER) | payer MEDICARE, MEDICAID ==
[~2018-11-03] VITALS: Ht 167.6 cm; Wt 68.0 kg
[2018-11-03 21:50] VITALS: BP 115/59
== END 2018-11-03 22:30 | disposition left against medical advice (07) ==
LOC: ER 21:23
DX: Z46.89 Encounter for fitting and adjustment of other specified devices (principal); Z53.21 Procedure and treatment not carried out due to patient leaving prior to being seen by health care provider

== ENCOUNTER 2018-11-13 22:02 | Inpatient (IN) | payer MEDICARE, MEDICAID ==
[~2018-11-13] VITALS: Ht 165.1 cm; Wt 61.3 kg
[~2018-11-13 22:02] MED LIST changes: -ASPI81CH43 PO; -CITA10TA59 PO; -CYAN500T3 PO; -MEMA10TA PO; -RISP0.2512 PO
[2018-11-13] MEDS ORDERED: ACETAMINOPHEN 650 MG RECT SUPP PR ONE (22:30)
[2018-11-13] MEDS ORDERED: cefTRIAXone 1GM/50ML D5W 50 ML IV ONE (22:30)
[2018-11-13] MEDS ORDERED: SODIUM CHLORIDE 0.9% 1,000 ML IV ONE (22:30)
[2018-11-13 23:18] LABS: Basophils # (auto) 0 uL; Eosinophils # (auto) 0.1 uL; Hematocrit 22.8 % (36.0-46.0); Hemoglobin 7.5 g/dL (12.2-16.2); Lymphocytes # (auto) 0.4 uL; White Blood Cell 7.6 10^3/uL (4.4-10.8)
[2018-11-13 23:20] LABS: Basophils % (auto) 0.2 % (0.0-2.0); Eosinophils % (auto) 0.7 % (0.0-7.0); Lymphocytes % (auto) 5.9 % (10.0-50.0); Mean Corpuscular Hemoglobin 27.5 pg (28.0-32.0); Mean Corpuscular Hgb Conc. 32.8 g/dL (32.0-36.0); Mean Corpuscular Volume 83.8 fL (80.0-100.0); Monocytes # (auto) 1.1 uL; Neutrophils % (auto) 79.2 % (37.0-80.0); Platelet Count (auto) 72 10^3/uL (140-450); Red Blood Cells 2.72 10^6/uL (4.0-5.20); Red Cell Distribution Width 17.3 % (11.8-14.3)
[2018-11-13 23:38] LABS: Calcium 7.4 mg/dL (8.5-10.1)
[2018-11-13 23:46] LABS: Albumin 2.4 g/dL (3.4-5.0); BUN/Creatinine Ratio 25.9; Bilirubin, Total 0.7 mg/dL (0.2-1.0); Total Protein 5.7 g/dL (6.4-8.2)
[2018-11-13 23:47] LABS: Lactic Acid w/Reflex 3.1 mmol/L (0.4-2.0)
[2018-11-13 23:52] LABS: Potassium 2.9 mmol/L (3.5-5.1)
[2018-11-14] VITALS (8 sets, daily range): BP systolic 89–141; BP diastolic 46–91
[2018-11-14] MEDS ORDERED: NITROGLYCERIN 0.4 MG SL TAB SL PRN (00:15)
[2018-11-14] MEDS ORDERED: TEMAZEPAM 15 MG CAP PO PRN (00:15)
[2018-11-14] MEDS ORDERED: ONDANSETRON HCL 4 MG/2 ML VIAL IV PRN (00:15)
[2018-11-14] MEDS ORDERED: MORPHINE SULF INJ 2 MG/ML SYRINGE 1ML IV PRN (00:15)
[2018-11-14] MEDS ORDERED: SODIUM CHLORIDE 0.9% 500 ML IV ONE (00:15)
[2018-11-14] MEDS ORDERED: HYDROcodone-ACET 5/325MG TAB PO PRN (00:15)
[2018-11-14] MEDS ORDERED: POTASSIUM CHL 20 Meq TABLET PO ONE ×2 (00:15→01:00)
[2018-11-14 00:19] LABS: INR 1.18 (0.9-1.15)
[2018-11-14] MEDS ORDERED: ALBUMIN 5% 250 ML IV ONE (00:30)
[2018-11-14] MEDS ORDERED: MEROPENEM 1GM IVPB 100 ML IV ONE (01:00)
[2018-11-14 02:03] LABS: Urine Bacteria FEW /hpf (None Seen); Urine Blood 1+ /uL (Negative); Urine Hyaline Cast FEW /lpf (0 - 2); Urine Mucus MODERATE (None Seen); Urine Specific Gravity 1.019 (1.001-1.035); Urine WBC 31 /hpf (0 - 5)
[2018-11-14] MEDS: SODIUM CHLORIDE 0.9% 1,000 ML IV SCH ×2 (02:58→12:50)
[2018-11-14] MEDS ORDERED: POTASSIUM CHL 20MEQ/100ML 100 ML IV ONE (05:00)
[2018-11-14] MEDS ORDERED: PATIENTS OWN MEDICATION (meropenem 1 GRAMS) IV SCH (06:00)
[2018-11-14] MEDS: risperiDONE 1 MG TAB PO SCH (10:05)
[2018-11-14] MEDS: MEMANTINE HCL 5 MG TAB PO SCH ×2 (10:05→21:00)
[2018-11-14] MEDS: FAMOTIDINE 20 MG TAB PO SCH (10:05)
[2018-11-14] MEDS: MEROPENEM 1GM IVPB 100 ML IV SCH ×2 (10:08→21:02)
[2018-11-14 10:41] LABS: Basophils # (auto) 0 uL; Basophils % (auto) 0.2 % (0.0-2.0); Eosinophils # (auto) 0.1 uL; Eosinophils % (auto) 1.9 % (0.0-7.0); Hematocrit 25.8 % (36.0-46.0); Hemoglobin 8.6 g/dL (12.2-16.2); Lymphocytes # (auto) 0.9 uL; Mean Corpuscular Hemoglobin 28.3 pg (28.0-32.0); Mean Corpuscular Hgb Conc. 33.4 g/dL (32.0-36.0); Mean Corpuscular Volume 84.7 fL (80.0-100.0); Monocytes # (auto) 1.1 uL; Monocytes % (auto) 16.3 % (0.0-12.0); Neutrophils # (auto) 4.4 uL; Neutrophils % (auto) 67.6 % (37.0-80.0); Red Blood Cells 3.04 10^6/uL (4.0-5.20); Red Cell Distribution Width 16.7 % (11.8-14.3); White Blood Cell 6.5 10^3/uL (4.4-10.8)
[2018-11-14 10:44] LABS: Platelet Count (auto) 70 10^3/uL (140-450)
[2018-11-14] MEDS ORDERED: FLEET MINERAL OIL ENEMA 133 ML PR ONE (10:45)
[2018-11-14] MEDS ORDERED: BISACODYL 5 MG EC TAB PO ONE (10:45)
[2018-11-14] MEDS ORDERED: MAGNESIUM CITRATE SOLUTION 300 ML BTL PO ONE (10:45)
[2018-11-14] MEDS: APIXABAN 5 MG TAB PO SCH ×2 (12:50→21:00)
[2018-11-14] MEDS: ASPirin 81 mg TAB PO SCH (12:50)
[2018-11-14 14:35] LABS: Albumin 2.7 g/dL (3.4-5.0); Calcium 7.7 mg/dL (8.5-10.1); Magnesium 2.2 mg/dL (1.6-2.6); Potassium 3.6 mmol/L (3.5-5.1); Total Protein 6.1 g/dL (6.4-8.2)
[2018-11-14 15:06] LABS: BUN/Creatinine Ratio 27.7
[2018-11-14] MEDS: SOD CHL 0.45% 1,000 ML IV SCH (15:52)
--- NOTE | 2018-11-14 17:10 | NUR ---
received report from er spoke with Erwin on telephone.
--- NOTE | 2018-11-14 17:35 | NUR ---
Admit to [facility] admitted to [facility] via gurney on personnel monitor, and portable 02. Patient transfered to bed, connected to unit monitoring and oxygen, and weighed by bedscale. Patient oriented to Jitendra Harry RN primary RN, unit, room, bed, and unit policies regarding patient care and visiting hours. FAMILY, SON IN LAW ABRAHAN AND DAUGHTER SHANNAN AT BESIDE AND All questions and concerns addressed. FAMILY VERBALIZED UNDERSTANDING. NOTE:
--- NOTE | 2018-11-14 17:39 | NUR ---
ASSESSMENT UPON ASSESSING PATIENT WE TURNED TURNED PATIENT TO SIDE TO FIND BRIGHT RED VAGINAL BLEEDING ON SHEETS. PATIENT WAS CLEANED. WILL ENDORSE TO YOUTH DEVELOPMENT PROFESSIONAL.
--- NOTE | 2018-11-14 19:04 | NUR ---
WOUND CARE PHOTOS TAKEN
--- NOTE | 2018-11-14 19:39 | NUR ---
END OF SHIFT GAVE REPORT OF FULL CODE PATIENT TO FURNITURE INSTALLER RN. BED SET AT LOWEST POSITION. 3X SIDE RAILS. ALL FALL AND SAFETY PRECAUTIONS IN PLACE. VITAL SIGNS STABLE. NO SIGNS OF DISTRESS.
[2018-11-15] VITALS: BP 122/40
[2018-11-15] MEDS: SOD CHL 0.45% 1,000 ML IV SCH ×2 (05:12→20:24)
[2018-11-15 07:19] LABS: Albumin 2.7 g/dL (3.4-5.0); Calcium 7.7 mg/dL (8.5-10.1); Potassium 3.4 mmol/L (3.5-5.1)
[2018-11-15 07:22] LABS: Basophils # (auto) 0 uL; Basophils % (auto) 0.2 % (0.0-2.0); Eosinophils # (auto) 0.1 uL; Eosinophils % (auto) 0.8 % (0.0-7.0); Hematocrit 28.1 % (36.0-46.0); Hemoglobin 9.5 g/dL (12.2-16.2); Lymphocytes # (auto) 0.7 uL; Lymphocytes % (auto) 8.8 % (10.0-50.0); Mean Corpuscular Hemoglobin 28.2 pg (28.0-32.0); Mean Corpuscular Hgb Conc. 33.7 g/dL (32.0-36.0); Mean Corpuscular Volume 83.9 fL (80.0-100.0); Monocytes # (auto) 1.1 uL; Monocytes % (auto) 13.4 % (0.0-12.0); Neutrophils # (auto) 6.5 uL; Neutrophils % (auto) 76.8 % (37.0-80.0); Nucleated Red Blood Cells % 0.1 %; Platelet Count (auto) 114 10^3/uL (140-450); Red Blood Cells 3.35 10^6/uL (4.0-5.20); Red Cell Distribution Width 16.4 % (11.8-14.3); White Blood Cell 8.4 10^3/uL (4.4-10.8)
[2018-11-15 07:23] LABS: BUN/Creatinine Ratio 26.2; Bilirubin, Total 1.1 mg/dL (0.2-1.0); Total Protein 6.1 g/dL (6.4-8.2)
[2018-11-15 07:40] VITALS: BP 125/49
--- NOTE | 2018-11-15 07:45 | NUR ---
Opening Shift Note Assumed care of patient, laying in bed, eyes closed, arousable to shaking, unable to follow commands, non-verbal. No S/S of distress/SOB or pain. See interventions for complete assessment. Bed locked on low position, side rails up x2, bed alarms on at all times, call gerardo within reach, instructed on POC and to call for assist PRN, will continue to monitor for changes Q1hr and PRN.
[2018-11-15] MEDS ORDERED: POTASSIUM CHLORIDE 40 MEQ, LIDOCAINE 1% (LOCAL ANESTH.) 4 ML in SODIUM CHL 0.9% 100 ML IV ONE (08:00)
--- NOTE | 2018-11-15 08:45 | NUR ---
BLE DVT US done at bedside.
--- NOTE | 2018-11-15 09:22 | NUR ---
Dr Clarke at bedside, updated on patient's status. Informed of patient's A-fib and BLE thrombus per US. verbalized understanding. Will come back for a family conference at 1000.
[2018-11-15] MEDS: APIXABAN 5 MG TAB PO SCH (10:00)
[2018-11-15] MEDS: ASPirin 81 mg TAB PO SCH (10:00)
[2018-11-15] MEDS: FAMOTIDINE 20 MG TAB PO SCH (10:00)
[2018-11-15] MEDS: risperiDONE 1 MG TAB PO SCH (10:00)
[2018-11-15] MEDS: MEMANTINE HCL 5 MG TAB PO SCH ×2 (10:00→20:15)
--- NOTE | 2018-11-15 10:30 | NUR ---
Patient's daughter and son in law/POA Reinaldo and four of patient's sisters at bedside. Updated on patient's status and POC. Family verbalized understanding and Reinaldo states "Can you make sure they are not giving her Risperdal because she has not been taking that for a while." Will inform MD.
[2018-11-15] MEDS: MEROPENEM 1GM IVPB 100 ML IV SCH ×2 (10:48→20:55)
--- NOTE | 2018-11-15 11:23 | NUR ---
Dr Clarke at bedside for family conference. Patient's daughter and son in law/POJulia Najera and patient's four sisters at bedside. MD updated family on patient's status and POC. Family verbalized understanding. Awaiting family decision regarding code status and hospice.
[2018-11-15 12:06] VITALS: BP 132/57
--- NOTE | 2018-11-15 14:40 | NUR ---
WOUND CARE NOTE: Wound care consult received from nursing. Patient is a 88yo female admitted for sepsis and acute metabolic encephalopathy. Patient with a history of dementia, depression, hypertension and DVTs.. Patient was recently discharged from [facility] and brought back by family due to ALOC. Patient seen with bedside RN, Heena. Patient is awake, but not oriented. Last Jameel score is 7. No signs or symptoms of pain. Patient with a healing stage 2 pressure injury to sacrum measuring 2x1cm. No other wounds noted. RECOMMENDATIONS: Dietary consult; Turn q2hrs; Specialty Bed; Nursing to cleanse sacral wound with wound cleanser, pat dry, apply THERAHONEY GEL, cover with OPTIFOAM GENTLE dressing, change every other day and PRN; wound care team to follow. Addendum: 11/15/18 at 1923 by ERIK RIVERA RN Amended: Links added.
--- NOTE | 2018-11-15 15:36 | NUR ---
Spoke to Dr Clarke over the phone, informed patient has been having moderate vaginal bleeding. MD verbalized understanding and states "Discontinue Eliquis". Also informed MD that per POA/son in law Reinaldo patient has not been taking Risperdal for a while and doesn't want patient to have it. Received telephone order to discontinue Risperdal. Telephone orders read back and verified. Will carry out.
[2018-11-15 15:40] VITALS: BP 116/40
--- NOTE | 2018-11-15 15:57 | NUR ---
Speech therapist at bedside fro swallow eval, patient able to tolerated apple sauce.
--- NOTE | 2018-11-15 15:59 | NUR ---
SWALLOW EVALUATED. PATIENT ALOC AND DID NOT OPEN EYES WHEN ASKED. PATIENT HAS NO TEETH OR DENTURES. ABLE TO TOLERATE PUREE DIET TEXTURE WITH THIN LIQUIDS WITH NO OVERT SIGNS OR SYMPTOMS OF ASPIRATION. NURSING NOTIFIED.
--- NOTE | 2018-11-15 18:30 | NUR ---
Fed patient pureed diet, strict aspiration precaution in place, patient tolerated 20% of dinner tray.
[2018-11-15 20:00] VITALS: BP 130/63
--- NOTE | 2018-11-15 20:00 | NUR ---
SHIFT OPENING NOTE RECEIVED PATIENT LAYING IN BED WITH EYES CLOSED, NONVERBAL. DOES NOT FOLLOW COMMANDS. BODY IS STIFF. NO SOB, DISTRSS OR PAIN NOTED. ON 4L N/C POX 96%. ADAMS CATH IN PLACE DRAINING YELLOW URINE TO GRAVITY. PATIENT REPOSITIONED. LEOBARDO MIDLINE INFUSING .45 NS AT 75 ML/H. PHYSICAL ASSESSMENT COMPLETED, SEE INTERVENTIONS. WILL CLOSELY MONITOR.
--- NOTE | 2018-11-15 20:15 | NUR ---
SON IN LAW HUSAIN AT BEDSIDE FEEDING PATIENT APPLE SAUCE. NO SIGNS OF ASPIRATION NOTED.
[2018-11-15] MEDS: ACETAMINOPHEN 325 MG TAB PO PRN (20:17)
--- NOTE | 2018-11-15 20:55 | NUR ---
PASSWORD SET UP PW: LADReji
[2018-11-16] VITALS: BP 106/56
--- NOTE | 2018-11-16 00:55 | NUR ---
ROUNDS PATIENT IS QUIETLY LAYING IN BED SLEEPING. NO SOB, DISTRESS OR PAIN NOTED. VS STABLE. WILL CONTINUE TO CLOSELY MONITOR.
[2018-11-16 04:00] VITALS: BP 127/84
--- NOTE | 2018-11-16 05:30 | NUR ---
MORNING HYGIENE CARE FULL BED BATH PERFORMED WITH CHG WIPES. GOWN CHANGED. PARTIAL LINEN CHANGE. Z-GUARD AND NEW OPTIFOAM PLACED ON SACRUM PRESSURE ULCER. PATIENT REPOSITIONED FOR COMFORT. TOLERATED IT WELL.
--- NOTE | 2018-11-16 06:45 | NUR ---
SON IN LAW LISHA BROUGHT IN POA PAPERWORK PLACED IN HARD CHART.
--- NOTE | 2018-11-16 07:00 | NUR ---
END OF SHIFT PATIENT IS LAYING IN BED SLEEPING. NO SOB, DISTRESS OR PAIN NOTED. ON 4L N/C. WILL GIVE REPORT AND ENDORSE CARE TO THE DAY SHIFT RN.
--- NOTE | 2018-11-16 07:15 | NUR ---
OPENING NOTE RECEIVED SHIFT REPORT AND CARE ASSUMED OF PT FROM DAVID GONCALVES
[2018-11-16 08:00] VITALS: BP 128/87
--- NOTE | 2018-11-16 08:40 | NUR ---
MEAL CONSUMPTION PT ATE 100% OF HER PUREE BREAKFAST WITH NO COMPLICATIONS. WILL CONTINUE TO MONITOR
--- NOTE | 2018-11-16 08:50 | NUR ---
DR. JEFF AT BEDSIDE SPOKE WITH SON-IN-LAW LISHA ON PHONE REGARDING PT STATUS AND UPDATE. SON STATES THAT HE WILL GIVE A CALL BACK WITH HOSPICE PROVIDER PHONE NUMBER
[2018-11-16] MEDS: MEMANTINE HCL 5 MG TAB PO SCH ×2 (10:00→22:00)
[2018-11-16] MEDS: FAMOTIDINE 20 MG TAB PO SCH (10:21)
[2018-11-16] MEDS: ASPirin 81 mg TAB PO SCH (10:21)
[2018-11-16] MEDS: MEROPENEM 1GM IVPB 100 ML IV SCH ×2 (10:22→22:14)
--- NOTE | 2018-11-16 10:30 | NUR ---
SPECIALTY MATTRESS PLACED PT ON SPECIALTY MATTRESS
[2018-11-16 12:00] VITALS: BP 131/57
--- NOTE | 2018-11-16 15:00 | NUR ---
PT APPEARS TO BE MORE AGITATED WHEN FAMILY IS AT BEDSIDE
[2018-11-16 16:00] VITALS: BP 120/53
[2018-11-16] MEDS: SOD CHL 0.45% 1,000 ML IV SCH (16:49)
--- NOTE | 2018-11-16 18:30 | NUR ---
DINNER PT ATE 100% OF HER MEAL. NO COMPLICATIONS WITH SWALLOWING
--- NOTE | 2018-11-16 19:40 | NUR ---
CLOSING NOTE SHIFT REPORT GIVEN AND CARE ENDORSED TO JAMIE GONCALVES
[2018-11-16 20:00] VITALS: BP 117/44
[2018-11-17] VITALS (8 sets, daily range): BP systolic 111–147; BP diastolic 45–65
--- NOTE | 2018-11-17 07:45 | NUR ---
OPENING NOTE Report received from Agustina GONCALVES, care assumed. Patient observed laying in bed, positioned on side. Patient does not appear to be in distress at this time. Patient opens eyes spontaneously but does not track or follow commands. Patient extremities are rigid. [place] boots in place. Patient on specialty air mattress. Michaud catheter patent, secure, and hung below bladder. Physical assessment performed. Lungs clear anteriorly. Frequent repositioning. Bed locked in lowest position with call light within reach. Alarms in place. Will continue to monitor.
--- NOTE | 2018-11-17 08:06 | NUR ---
Pt remained stable throughout shift. Turned [id number]. No S/S of distress. Noted pt seemed to be rubbing or itching head and leg, looked at both areas and did not see any kind of breakout or anything to be scratching. Namenda held during shift due to receiving information in report that family does not want pt to take Namenda. Foam boots in place, mittens on for safety. Report given to AM shift, care endorsed.
--- NOTE | 2018-11-17 08:30 | NUR ---
INTAKE Patient tolerated puree diet. Patient consumed 100% of breakfast without difficulty. No signs of coughing, choking, or aspiration noted.
[2018-11-17] MEDS: SOD CHL 0.45% 1,000 ML IV SCH ×3 (09:55→23:15)
[2018-11-17] MEDS: MEMANTINE HCL 5 MG TAB PO SCH ×2 (10:00→22:19)
[2018-11-17] MEDS: FAMOTIDINE 20 MG TAB PO SCH (10:15)
[2018-11-17] MEDS: MEROPENEM 1GM IVPB 100 ML IV SCH ×2 (10:15→22:19)
[2018-11-17] MEDS: ASPirin 81 mg TAB PO SCH (10:15)
--- NOTE | 2018-11-17 10:31 | NUR ---
ELIMINATION Patient had moderate sized soft bowel movement. Patient given complete linen change with partial bed bath. Skin assessment performed. Sacral dressing intact. Patient repositioned on side, tolerated activity well. No distress noted.
--- NOTE | 2018-11-17 10:51 | NUR ---
IV DRESSING CHANGE Right upper arm midline dressing appeared to be saturated and leaking. Dressing change performed with sterile technique. No signs of leaking or infiltration noted at this time.
--- NOTE | 2018-11-17 11:00 | NUR ---
HOSPITALIST AT BEDSIDE at bedside. MD reviewing chart at this time.
[2018-11-17] MEDS ORDERED: BISACODYL 10 MG RECT SUPP PR ONE (11:15)
[2018-11-17] MEDS ORDERED: BISACODYL 5 MG EC TAB PO ONE (11:15)
--- NOTE | 2018-11-17 11:17 | NUR ---
PAGED called re: clarification of discharge order. Waiting for call back. Continue care.
[2018-11-17 13:18] LABS: Basophils # (auto) 0 uL; Basophils % (auto) 0.2 % (0.0-2.0); Eosinophils # (auto) 0.2 uL; Eosinophils % (auto) 2.1 % (0.0-7.0); Hematocrit 29.9 % (36.0-46.0); Hemoglobin 9.5 g/dL (12.2-16.2); Lymphocytes # (auto) 0.9 uL; Lymphocytes % (auto) 11.6 % (10.0-50.0); Mean Corpuscular Hemoglobin 28.4 pg (28.0-32.0); Mean Corpuscular Hgb Conc. 31.9 g/dL (32.0-36.0); Monocytes # (auto) 1.2 uL; Monocytes % (auto) 15.2 % (0.0-12.0); Neutrophils # (auto) 5.6 uL; Neutrophils % (auto) 70.9 % (37.0-80.0); Platelet Count (auto) 392 10^3/uL (140-450); Red Blood Cells 3.36 10^6/uL (4.0-5.20); Red Cell Distribution Width 17.4 % (11.8-14.3); White Blood Cell 7.8 10^3/uL (4.4-10.8)
[2018-11-17 13:31] LABS: BUN/Creatinine Ratio 23.5; Calcium 7.5 mg/dL (8.5-10.1); Magnesium 2.4 mg/dL (1.6-2.6); Potassium 3.8 mmol/L (3.5-5.1)
[2018-11-17 13:33] LABS: Total Protein 5.5 g/dL (6.4-8.2)
--- NOTE | 2018-11-17 15:10 | NUR ---
MD Called/paged called re:downgrade orders and discharge clarification. Orders obtained. MD wants to keep Midline IV in until patient is discharge, OK for patient to go home with castro catheter. stated that patient may go to tele unit.
[2018-11-17] MEDS ORDERED: POTASSIUM EFFERVESENT TAB 25 MEQ PO ONE (16:00)
--- NOTE | 2018-11-17 16:43 | NUR ---
[facility] Lost Charge Card Clerk from [facility] called to set olive picker for patient at 2130. Lost Charge Card Clerk notified to bring oxygen for transport. Contact information regarding olive picker: [phone]
--- NOTE | 2018-11-17 16:46 | NUR ---
D/C Planning Per consult for Hospice. Per Pt Jose Ramon Najera requested [facility] hospice. Contacted [facility] hospice Ph: ) Fax: ( [phone]) faxed medical records. Per Mi Pt has been accepted and a RN will be sent to evaluate Pt before D/C. Contacted [facility] ph:) spoke to Cassandra. Per Nirmala Pt will be picked up at 21:30 via gurney. Cisneros RN Isabel. Addendum: 11/17/18 at 1653 by DAYTON HOGAN Amended: Links added.
--- NOTE | 2018-11-17 16:53 | NUR ---
assessment Patient is a 88 year old female who is confused. Prior to admission patient lived home with her son Reinaldo and family and functioned with assistance. Per Reinaldo patient will return home with him post discharge. Reinaldo informed me patient has a fww, wheelchair, bedside commode, and a shower chair for home use. Reinaldo informed me that he is patients [facility] caregiver. Reinaldo informed me patients PCP is Dr. Rios. Patient is on service with [facility]. Patient has a consult for hospice. Per Mahamed he is requesting [facility] hospice who is affiliated with [facility]. I informed Reinaldo ennis has a right to speak to a social media campaign manager regarding all care. I informed Reinaldo ennis has a right to participate in any and all discharge planning. Reinaldo is aware of visiting hours on the hospital floor. I informed Reinaldo ennis has a right to privacy. Patient has an advanced directive and her POA is her son Reinaldo [phone]. Reinaldo verbalized understanding and agreed to discharge plan home on hospice. Addendum: 11/17/18 at 1656 by Indu SAENZ Amended: Links added.
--- NOTE | 2018-11-17 17:00 | NUR ---
FAMILY Patient son in law Reinaldo aware of patient being moved to [facility] and time for discharge quill picking machine operator.
--- NOTE | 2018-11-17 17:08 | NUR ---
PATIENT TRANSFER TO FLOOR Patient placed on tele #3, transferred to room 233. Report given to Ira GONCALVES, care endorsed.
--- NOTE | 2018-11-17 17:23 | NUR ---
[facility] pt transferred to floor [facility] transfered to 233 via specialty mattress bed. Patient is on 2L nasal cannula. All personal belongings transferred with patient to receiving floor. Patient care transferred to Ira Reynolds RN. No distress noted. Patient is nonverbal and does not follow commands. Breathing is even and unlabored. Lungs sounds are clear. Patient does not appear to be in any pain and shows no signs or symptoms of distress.
--- NOTE | 2018-11-17 17:36 | NUR ---
Call from Reinaldo Najera is upset that patient is being transported "so late." He does not want her transferred at that time because he does not want her to "catch a cold." Informed Reinaldo that patient has just arrived to the unit and this RN would call him back after hospice is notified to verify pick-up time.
--- NOTE | 2018-11-17 17:39 | NUR ---
Call to [place] [facility] Call to [facility] at this time to verify patient's vegetable picker time and other discharge information. Spoke with the on-well service floorperson who has no information on this transfer or patient. Data Operations Director states she will call this RN in 15 minutes with more information.
--- NOTE | 2018-11-17 17:42 | NUR ---
Personal Belongings/Pick-up Time Received a call from daughter at this time regarding patient's belongings. Patient's daughter states that, "every time my mother is transferred, her belongings always come up missing." Spoke with [facility] RN that transferred patient to verify patient's belongings. Per [facility] RN, only belonging that patient had was a striped shirt. Daughter is aware of patient's transport at 2130. Daughter states, "Are you guys going to feed her dinner." Assured daughter that patient would be fed before transport. Daughter verbalized understanding.
--- NOTE | 2018-11-17 17:54 | NUR ---
[facility] Call [facility] called at this time. [facility] is transporting patient via ambulance with a operations and maintenance supervisor at 2130. IVANNA Zamora can be contacted with further questions. Will notify son-in-law, Reinaldo.
--- NOTE | 2018-11-17 17:56 | NUR ---
Call to Son-in-law Call to Reinaldo at this time. No answer. Left a message with callback information.
--- NOTE | 2018-11-17 19:15 | NUR ---
Son-in-law at bedside Son-in-law, Reinaldo, at bedside. Reinaldo expressing concerns. All questions and concerns addressed. Reinaldo to come back around 2100 to sign paperwork and change patient prior to transport pick-up.
--- NOTE | 2018-11-17 19:35 | NUR ---
RECEIVED PATIENT FROM DAY SHIFT RN. PATIENT RESTING IN BED. NO S/S OF DISTRESS AND PAIN NOTED. PATIENT NON VERBAL RESPONSE NOW. MITTENS ON. FAMILY AT BEDSIDE, AND UNDERSTOOD PATIENT WILL BE DISCHARGED WITH HOME HEALTH. FAMILY WILL COME BACK LATER WITH PATIENT'S CLOTHES WHEN THE TRANSPORTATION HERE. IVS REMOVED BY DAY SHIFT RN. [facility] CATH IN PLACE DRAINING GRAVITY. DRESSING ON SACRAL AREA C/D/I. SPECIAL MATTRESS BED IN LOWEST POSITION WITH SIDE RAILS UP X 2. CALL ESPARZA WITHIN REACH. ALARM ON. CONTINUE TO MONITOR FOR CHANGES Q1H AND PRN.
--- NOTE | 2018-11-17 19:35 | NUR ---
Closing Shift Note Patient is resting in bed. IV to the right hand has been discontinued, IV infiltrated. Midline access discontinued. IV fluids that were running through midline have completely saturated the pillowcase under patient's arm suggesting infiltration. Patient will be picked up from transport at 2130. Son-in-law, Reinaldo, aware.
[2018-11-17] MEDS: ACETAMINOPHEN 325 MG TAB PO PRN (19:42)
--- NOTE | 2018-11-17 19:45 | NUR ---
DURING THE DISCHARGE ASSESSMENT, PATIENT'S TEMP 101. MEDICATION GIVEN ORDERED. COOLING MEASURE APPLIED. WILL PAGE HOSPITALIST. CONTINUE TO MONITOR.
--- NOTE | 2018-11-17 19:48 | NUR ---
Called/paged MORRIS SILVA called re: PATIENT'S TEMP 101. MEDICATION GIVEN ORDERED. PATIENT IS DISCHARGING. WHETHER NEEDS TO HOLD D/C . Waiting for call back. Continue care.
--- NOTE | 2018-11-17 19:53 | NUR ---
HOSPITALIST returned call FUELS SALES REPRESENTATIVE SHIRA returned call, updated on patient status and reason for call, HE WILL REVIEW PATIENT'S CHART AND CALL BACK LATER. Continue care.
--- NOTE | 2018-11-17 19:58 | NUR ---
returned call MORRIS SILVA returned call, ORDERED TO D/C PATIENT. Continue care.
--- NOTE | 2018-11-17 20:20 | NUR ---
DISCHARGE WOUND PHOTO DONE. CONTINUE TO MONITOR.
--- NOTE | 2018-11-17 20:48 | NUR ---
PATIENT JUST HAD BM. CLEANED PATIENT. PARTIAL LINEN CHANGED. PATIENT TOLERATED WELL. CONTINUE CARE.
--- NOTE | 2018-11-17 21:11 | NUR ---
HOSPITALIST Called/paged MORRIS HOLT called re: FAMILY CAME TO CORE FITTER PATIENT. UPDATED PATIENT'S CONDITION. FAMILY REFUSED TO TAKE PATIENT HOME. Waiting for call back. Continue care.
--- NOTE | 2018-11-17 21:24 | NUR ---
HOSPITALIST returned call MORRIS HOLT returned call, updated on patient status and reason for call, SHE WILL TALK TO ADA WHITTINGTON AND CALL BACK. Continue care.
--- NOTE | 2018-11-17 21:40 | NUR ---
ROVING WEIGHT GAUGER AT BEDSIDE.
--- NOTE | 2018-11-17 21:57 | NUR ---
DISCHARGE HELD PER PROGRAM MANAGEMENT SPECIALIST CHRISTINA. CONTINUE CARE.
--- NOTE | 2018-11-17 22:19 | NUR ---
IV insertion IV access obtained, via clean sterile technique by inserting [22] gauge catheter at [RFA] after [1] attempt(s). IV secured properly. No trauma to site. Patient tolerated well. NOTE: []
--- NOTE | 2018-11-17 22:23 | NUR ---
HOSPITALIST Called/paged MORRIS HOLT called re:TO HOLD D/C. Waiting for call back. Continue care.
--- NOTE | 2018-11-17 22:37 | NUR ---
HOSPITALIST returned call MORRIS HOLT returned call, updated on patient status and reason for call, ORDERED TO HOLD D/C. Continue care.
--- NOTE | 2018-11-17 22:38 | NUR ---
ORAL MEDICATION GIVEN ORDERED. PATIENT SWALLOWED WELL. NO S/S OF ASPIRATION NOTED. CONTINUE TO MONITOR.
--- NOTE | 2018-11-18 00:07 | NUR ---
REPOSITIONED PATIENT. PATIENT TOLERATED WELL. CONTINUE TO MONITOR.
--- NOTE | 2018-11-18 02:25 | NUR ---
REPOSITIONED PATIENT. PATIENT TOLERATED WELL. CONTINUE TO MONITOR.
[2018-11-18 05:12] VITALS: BP 127/63
[2018-11-18 08:00] VITALS: BP 131/81
--- NOTE | 2018-11-18 08:00 | NUR ---
Opening Note Assumed care of patient, she is altered in mental status. Patient will awaken to her name, open her mouth when cued to eat. Patient otherwise is non-verbal. She is otherwise showing no signs of discomfort. Will continue to monitor Q1h and PRN. Bed is in low, locked position, no bed alarm available, all four rails up at this time. Will monitor.
--- NOTE | 2018-11-18 10:00 | NUR ---
Dr. Clarke at bedside, patient to be discharged today.
[2018-11-18] MEDS: MEROPENEM 1GM IVPB 100 ML IV SCH (11:31)
[2018-11-18] MEDS: FAMOTIDINE 20 MG TAB PO SCH (11:33)
[2018-11-18] MEDS: MEMANTINE HCL 5 MG TAB PO SCH (11:33)
[2018-11-18] MEDS: ASPirin 81 mg TAB PO SCH (11:33)
[2018-11-18 12:00] VITALS: BP 128/66
--- NOTE | 2018-11-18 12:19 | NUR ---
D/C Planning Followed up Call to Senior Peoplesoft Developer Robbin from [facility] regarding transportation. Contacted [facility] Ph: ( [phone] spoke to Shaquille. Per Shaquille from general transport pt will be picked up between the hours 13:00-14:00 via noelle. Informed IVANNA Grayson.
--- NOTE | 2018-11-18 13:19 | NUR ---
Called son Reinaldo to notify that mother will be picked up by transportation today between 1pm and 3 pm.
--- NOTE | 2018-11-18 14:00 | NUR ---
Transport arrived, called son Reinaldo and notified him that mother will be on her way home. Informed son that education and information packet is with transport to be given to him. He agreed.
--- NOTE | 2018-11-18 14:07 | NUR ---
Discharge instructions given as ordered. Encourage to follow up with PMD as instructed. All questions and concerns addressed, patient family verbalized understanding. Medication reconciliation form completed and copy given to patient. IV removed with catheter intact, pressure dressing applied, castro catheter left in place as requested. Telemetry unit returned to ICU. Patient picked up by [facility] and departed via gurney with all personal belongings. No distress noted at time of departure.
== END 2018-11-18 14:07 | disposition hospice, home (50) | DRG 871 ==
LOC: EDBD 22:02 → ER 22:07 → TELE 22:08 → DOU IN ICU 11-14 17:37 → TELE-DOU 11-17 17:05 → TELE-EAST 11-17 18:22
PROVIDERS: ADMIT Nurse Practitioner; ATTEND Internal Medicine
PROC: 30233N1 Transfusion of Nonautologous Red Blood Cells into Peripheral Vein, Percutaneous Approach (ICD-10-PCS; principal; 2018-11-14)
DX: A41.52 Sepsis due to Pseudomonas (principal); L89.153 Pressure ulcer of sacral region, stage 3; G93.41 Metabolic encephalopathy; I21.A1 Myocardial infarction type 2; N39.0 Urinary tract infection, site not specified; R62.7 Adult failure to thrive; E87.6 Hypokalemia; I11.0 Hypertensive heart disease with heart failure; G30.9 Alzheimer's disease, unspecified; I50.9 Heart failure, unspecified; F02.80 Dementia in other diseases classified elsewhere, unspecified severity, without behavioral disturbance, psychotic disturbance, mood disturbance, and anxiety; D50.9 Iron deficiency anemia, unspecified; I48.91 Unspecified atrial fibrillation; N93.9 Abnormal uterine and vaginal bleeding, unspecified; Z74.01 Bed confinement status; Z86.718 Personal history of other venous thrombosis and embolism; Z95.828 Presence of other vascular implants and grafts; Z79.01 Long term (current) use of anticoagulants; Z90.49 Acquired absence of other specified parts of digestive tract; Z88.8 Allergy status to other drugs, medicaments and biological substances
CPT/HCPCS: 36415; 36430; 36600; 70450; 71045; 74176; 80053; 81001; 82040; 82140; 82805; 83605; 83735; 83880; 84484; 85025; 85379; 85384; 85610; 86850; 86900; 86901; 86920; 87040; 87081; 87086; 92610; 93005; 93306; 93970; 96361; 96365; 96367; G0378; J0696; J2001; J2185; J3480

== ENCOUNTER 2019-01-02 22:37 | Inpatient (IN) | payer MEDICARE, MEDICAID ==
[~2019-01-02] VITALS: Ht 160 cm; Wt 50.2 kg
[2019-01-02 23:50] LABS: Basophils # (auto) 0.1 uL; Basophils % (auto) 0.8 % (0.0-2.0); Eosinophils # (auto) 0.1 uL; Eosinophils % (auto) 1.4 % (0.0-7.0); Hematocrit 34.4 % (36.0-46.0); Hemoglobin 11.1 g/dL (12.2-16.2); Lymphocytes # (auto) 1.6 uL; Lymphocytes % (auto) 19.6 % (10.0-50.0); Mean Corpuscular Hgb Conc. 32.3 g/dL (32.0-36.0); Mean Corpuscular Volume 86.7 fL (80.0-100.0); Monocytes # (auto) 0.6 uL; Monocytes % (auto) 7.9 % (0.0-12.0); Neutrophils # (auto) 5.7 uL; Neutrophils % (auto) 70.3 % (37.0-80.0); Platelet Count (auto) 385 10^3/uL (140-450); Red Blood Cells 3.96 10^6/uL (4.0-5.20); Red Cell Distribution Width 16.4 % (11.8-14.3); White Blood Cell 8.1 10^3/uL (4.4-10.8)
[2019-01-03 00:09] LABS: Alanine Aminotransferase 15 U/L (13-56); Albumin 2.7 g/dL (3.4-5.0); Anion Gap 6 (5-15); Blood Alcohol < 3.0 mg/dL (0-5); Blood Urea Nitrogen 16 mg/dL (7-18); Calcium 7.9 mg/dL (8.5-10.1); Carbon Dioxide 22 mmol/L (21-32); Chloride 111 mmol/L (98-107); GFR African American 87 mL/min; GFR Non-African American 72 mL/min; Glucose 113 mg/dL (74-106); Potassium 4.3 mmol/L (3.5-5.1); Sodium 139 mmol/L (136-145)
[2019-01-03 00:20] LABS: Alkaline Phosphatase 238 U/L (45-117); Aspartate Aminotransferase 12 U/L (15-37); Bilirubin, Total < 0.1 mg/dL (0.2-1.0); Total Protein 6.9 g/dL (6.4-8.2)
[2019-01-03 01:37] LABS: Alcohol, Urine < 3.0 mg/dL (0-5); Amphetamine Screen, Urine NEGATIVE (NEGATIVE); Barbiturate Scree,Urine NEGATIVE (NEGATIVE); Benzodiazephine Screen, Urine NEGATIVE (NEGATIVE); Cannabinoid Screen, Urine NEGATIVE (NEGATIVE); Cocaine Screen, Urine NEGATIVE (NEGATIVE); Opiate Scree,Urine NEGATIVE (NEGATIVE); Phencyclidine Screen, Urine NEGATIVE (NEGATIVE)
[2019-01-03 01:41] LABS: Urine Amorphous Crystal MOD /hpf (None Seen); Urine Bacteria MANY /hpf (None Seen); Urine Blood 3+ /uL (Negative); Urine Mucus FEW (None Seen); Urine Specific Gravity 1.022 (1.001-1.035); Urine WBC 319 /hpf (0 - 5); Urine WBC Clumps PRESENT /hpf (None Seen)
[2019-01-03] MEDS ORDERED: SODIUM CHLORIDE 0.9% 500 ML IV ONE (03:00)
[2019-01-03] MEDS ORDERED: cefTRIAXone 1GM/50ML D5W 50 ML IV ONE (04:30)
[2019-01-03] MEDS ORDERED: ONDANSETRON HCL 4 MG/2 ML VIAL IV PRN (07:15)
[2019-01-03] MEDS ORDERED: ACETAMINOPHEN 325 MG TAB PO PRN (07:15)
[2019-01-03] MEDS ORDERED: DOCUSATE SOD 100 MG CAP PO PRN (07:15)
[2019-01-03] MEDS ORDERED: TEMAZEPAM 15 MG CAP PO PRN (07:15)
[2019-01-03] MEDS: SODIUM CHLORIDE 0.9% 1,000 ML IV SCH ×2 (08:07→20:28)
[2019-01-03] MEDS: MEROPENEM 1GM IVPB 100 ML IV SCH ×2 (09:51→22:25)
[2019-01-03] MEDS ORDERED: PATIENTS OWN MEDICATION (meropenem 1 GRAMS) IV SCH (10:00)
[2019-01-03] MEDS: FAMOTIDINE 20 MG TAB PO SCH (10:29)
[2019-01-03] MEDS: MEMANTINE HCL 5 MG TAB PO SCH ×2 (10:29→22:26)
--- NOTE | 2019-01-03 10:55 | NUR ---
MS admit from ER WES SMALL admitted to tele/MS after SBAR received. Patient oriented to MO ruiz RN, unit, room, bed, and unit policies regarding patient care and visiting hours. Patient is nonverbal and does not respond to her name. From appearance, the patient is calm and has no signs or symptoms of pain. Patient weighed by bed scale and bed alarm set. Patient has a pressure ulcer to the sacrum. Patient will be rounded on frequently, as she is unable to call the call light and call for help. The bed is in the lowest, locked position and close to the nurses station. Will round frequently and continue to monitor.
[2019-01-03 17:12] VITALS: BP 152/74
--- NOTE | 2019-01-03 19:40 | NUR ---
Opening Shift Note Assumed care of patient. Patient nonverbal. No S/S of distress/SOB or pain noted. Instructed on POC and to call for assist PRN. Bed in lowest locked position, call light within reach, side rails up x2, fall precautions in place. Will continue to monitor for changes Q1hr and PRN.
[2019-01-03 22:00] VITALS: BP 127/70
[2019-01-04 05:00] VITALS: BP 150/89
[2019-01-04 05:40] VITALS: BP 150/89
[2019-01-04 06:10] LABS: Basophils # (auto) 0 uL; Basophils % (auto) 0.6 % (0.0-2.0); Eosinophils # (auto) 0.1 uL; Eosinophils % (auto) 1.8 % (0.0-7.0); Hemoglobin 11.5 g/dL (12.2-16.2); Lymphocytes # (auto) 1.3 uL; Lymphocytes % (auto) 19.7 % (10.0-50.0); Mean Corpuscular Hemoglobin 27.7 pg (28.0-32.0); Mean Corpuscular Volume 89.3 fL (80.0-100.0); Monocytes # (auto) 0.5 uL; Monocytes % (auto) 8.2 % (0.0-12.0); Neutrophils # (auto) 4.6 uL; Neutrophils % (auto) 69.7 % (37.0-80.0); Platelet Count (auto) 374 10^3/uL (140-450); Red Blood Cells 4.14 10^6/uL (4.0-5.20); Red Cell Distribution Width 17.3 % (11.8-14.3); White Blood Cell 6.7 10^3/uL (4.4-10.8)
[2019-01-04 06:41] LABS: Potassium 3.6 mmol/L (3.5-5.1)
[2019-01-04 06:52] LABS: Calcium 8.6 mg/dL (8.5-10.1)
[2019-01-04 09:00] VITALS: BP 146/75
[2019-01-04] MEDS: FAMOTIDINE 20 MG TAB PO SCH (10:00)
[2019-01-04] MEDS: MEMANTINE HCL 5 MG TAB PO SCH ×2 (10:00→23:07)
[2019-01-04] MEDS: SODIUM CHLORIDE 0.9% 1,000 ML IV SCH (12:29)
[2019-01-04] MEDS: MEROPENEM 1GM IVPB 100 ML IV SCH ×2 (12:30→23:05)
[2019-01-04 13:00] VITALS: BP 126/66
--- NOTE | 2019-01-04 14:12 | NUR ---
NUTRITION CONSULT/ASSESSMENT NOTES Please refer to link notes of nutrition screen form filed under the intervention section of the plan of care for further details. Est. Needs: 1550 kcal to 1800 kcal (30-35 kcal/kgBW), 52 gms to 67 gms pro (1.0-1.3 gms/kgBW d/t mod hypoalbuminemia, wound healing). Will continue to monitor pertinent labs and reassess nutrient need prn Thank you for this consult. Addendum: 01/04/19 at [address] Amended: Links added.
--- NOTE | 2019-01-04 14:40 | NUR ---
WOUND CARE NOTE: Wound care consult received from nursing. Patient is a 88yo female admitted for sepsis from UTI and acute metabolic encephalopathy. Patient with a history of dementia, depression, hypertension and DVTs.. Patient seen with bedside RN, Shira. Patient is awake, but not oriented. Last Jameel score is 13. No signs or symptoms of pain. Patient with a healing stage 3 pressure injury to sacrum measuring 3x2cm. No other wounds noted. RECOMMENDATIONS: Dietary consult; Turn q2hrs; Specialty Bed; Nursing to cleanse sacral wound with wound cleanser, pat dry, apply THERAHONEY GEL, cover with OPTIFOAM GENTLE dressing, change every other day and PRN; wound care team to follow. Addendum: 01/04/19 at 1735 by ERIK RIVERA RN Amended: Links added.
[2019-01-04 17:00] VITALS: BP 106/46
--- NOTE | 2019-01-04 19:30 | NUR ---
Opening Shift Note Assumed care of patient from Shira GONCALVES. Patient is laying in bed, eyes closed, even and unlabored respirations noted. No signs/symptoms of distress or shortness of breath noted at this time. Instructed on plan of care and to call for assistance as needed, patient unable to verbalize understanding. Bed is locked in lowest position, side rails x 2 are up, call light is within reach, and bed alarm is on.
--- NOTE | 2019-01-04 21:40 | NUR ---
IV INSERTION IV access obtained, via clean sterile technique by inserting 22 gauge catheter at left forearm after 2 attempts. IV secured properly. No trauma to site. Patient tolerated well. IV REMOVAL IV to left wrist DC'd with clean sterile technique, catheter fully intact. Pressure dressing applied to site. Patient tolerated well.
[2019-01-04 22:00] VITALS: BP 135/54
[2019-01-05] MEDS: SODIUM CHLORIDE 0.9% 1,000 ML IV SCH ×2 (00:58→12:28)
--- NOTE | 2019-01-05 02:00 | NUR ---
MRSA SWAB COLLECTED AND SENT TO LAB MRSA swab collected and sent to lab.
[2019-01-05 05:00] VITALS: BP 145/68
--- NOTE | 2019-01-05 05:00 | NUR ---
WOUND CARE Patient transferred onto speciality bed with assistance of suellen Groves. Patient noted to have open pressure ulcer to sacrum. Sacrum cleansed with clean soap and water, patted dry, therahoney, and Optifoam applied over sacrum. Patient is laying in bed with even and labored respirations. No S/S of distress or pain noted at this time. Bed is locked in lowest position, side rails x3 are up, call light is within reach, and bed alarm is on.
--- NOTE | 2019-01-05 06:52 | NUR ---
CLOSING SHIFT NOTE Patient is laying in bed, eyes closed, with even and unlabored respirations noted. No S/S of distress noted. Bed is locked in lowest position, side rails x 3 are up, call light is within reach, and bed alarm is on. Will endorse patient care to day shift RN.
--- NOTE | 2019-01-05 07:55 | NUR ---
ROUNDED ON PATIENT, NOTED BILATERAL MITTENS, PER STRAW BALER, PATIENT SON PUT IT ON PATIENT TO PREVENT PULLING TUBES.
[2019-01-05 08:55] VITALS: BP 122/74
--- NOTE | 2019-01-05 09:12 | NUR ---
Weekend ammonia still operator-I did not receive a page regarding the social service consult for this patient.
[2019-01-05] MEDS: MEROPENEM 1GM IVPB 100 ML IV SCH (11:33)
[2019-01-05] MEDS: MEMANTINE HCL 5 MG TAB PO SCH (11:38)
[2019-01-05] MEDS: FAMOTIDINE 20 MG TAB PO SCH (11:38)
[2019-01-05 14:05] VITALS: BP 129/77
--- NOTE | 2019-01-05 15:28 | NUR ---
D/C Planning Per consult to resume home health service with [facility]. Contacted [facility] Ph:) Fax:) faxed medical records. Per Maria Del Carmen from [facility] they will resume service within 48hrs upon d/c day. Contacted [facility] transport Ph:) Fax:) faxed transportation form requesting black pickler time to be at 16:00 via gurney with oxygen 2 l/min. Per Nayeli from [facility] transport black pickler time will be between 16:00-16:30 via gurney with oxygen 2l/min. Informed RN Pratibha. Addendum: 01/05/19 at 1534 by DAYTON HOGAN Amended: Links added.
--- NOTE | 2019-01-05 16:05 | NUR ---
Assessment and SS consult Pt is an 88 yr old nonverbal disoriented female. SW assessment conducted with through phone call to pt's son Reinaldo at [phone]. SS consult given for living situation. Pt currently lives with Reinaldo and he provides caregiving services for her. Pt's son stated that pt has everything that she needs in order to be safe in the home including medical equipment. Prior to admit, pt receives HH services through [facility] and a resumption order will need to be placed upon d/c. Reinaldo states that he is able to meet pt's needs between HH and his assistance. Pt admitted with a UTI and receiving tx for it. Reinaldo stated that pt receives income. Reinaldo stated that pt will need transportation home through [facility]. SW made CM aware of HH and [facility] transport needs. No other needs or concerns at this time. Addendum: 01/05/19 at 1615 by JOSEE ARCE Amended: Links added.
--- NOTE | 2019-01-05 18:21 | NUR ---
PATIENT SON CAME, GAVE PATIENT PERSONAL BELONGING AND DISCHARGE PAPERS., INSTRUCTIONS PROVIDED. PATIENT PICKED UP BY [facility]SPORT WITNESSED BY PATIENT SON KATHLEEN. IV ACCESS HAS BEEN REMOVED. DISCHARGE WITH [facility] PER PATIENT SON REQUEST, PER SON PT" HAS HOME HEALTH AND THEY WILL REMOVE IT, SHE HAS WOUND ON HER SACRUM AND IT WILL HELP STAY DRY IF SHE HAS [facility]." EDUCATED ON RISK OF UTI RELATED TO [facility], PATIENT ALREADY HAVE UTI.
== END 2019-01-05 18:30 | disposition home health service (06) | DRG 871 ==
LOC: EDBD 22:37 → ER 22:39 → OVERFLOW 22:40 → WEST WING 01-03 11:51
PROVIDERS: ADMIT Nurse Practitioner; ATTEND Family Medicine
DX: A41.51 Sepsis due to Escherichia coli [E. coli] (principal); L89.153 Pressure ulcer of sacral region, stage 3; G93.41 Metabolic encephalopathy; N39.0 Urinary tract infection, site not specified; E44.0 Moderate protein-calorie malnutrition; Z68.1 Body mass index [BMI] 19.9 or less, adult; R62.7 Adult failure to thrive; I10 Essential (primary) hypertension; D50.9 Iron deficiency anemia, unspecified; R31.9 Hematuria, unspecified; E86.0 Dehydration; F02.80 Dementia in other diseases classified elsewhere, unspecified severity, without behavioral disturbance, psychotic disturbance, mood disturbance, and anxiety; F32.9 Major depressive disorder, single episode, unspecified; G30.9 Alzheimer's disease, unspecified; I48.91 Unspecified atrial fibrillation; Z74.01 Bed confinement status; Z79.01 Long term (current) use of anticoagulants; Z86.711 Personal history of pulmonary embolism; Z87.440 Personal history of urinary (tract) infections
CPT/HCPCS: 36415; 70450; 73060; 80048; 80053; 80307; 80320; 81001; 83605; 83880; 84484; 85025; 87040; 87081; 87086; 87088; 87186; 94761; 96361; 96365; G0378; J0696; J2185

== ENCOUNTER 2019-02-14 10:33 | Inpatient (IN) | payer MEDICARE, MEDICAID ==
[~2019-02-14] VITALS: Ht 157.5 cm; Wt 56.1 kg
[~2019-02-14 10:33] MED LIST changes: -APIX5TAB OR; +ASP81EC PO; +DOCU-94 PO; +KEP500T PO
[2019-02-14 11:57] LABS: Basophils # (auto) 0 uL; Basophils % (auto) 0.7 % (0.0-2.0); Eosinophils # (auto) 0.3 uL; Hemoglobin 10.3 g/dL (12.2-16.2); Lymphocytes # (auto) 1.1 uL; Lymphocytes % (auto) 19.4 % (10.0-50.0); Mean Corpuscular Hemoglobin 27.4 pg (28.0-32.0); Mean Corpuscular Hgb Conc. 32.1 g/dL (32.0-36.0); Mean Corpuscular Volume 85.2 fL (80.0-100.0); Monocytes # (auto) 0.6 uL; Monocytes % (auto) 11.1 % (0.0-12.0); Neutrophils # (auto) 3.5 uL; Neutrophils % (auto) 62.8 % (37.0-80.0); Nucleated Red Blood Cells % 0.1 %; Platelet Count (auto) 236 10^3/uL (140-450); Red Blood Cells 3.75 10^6/uL (4.0-5.20); Red Cell Distribution Width 17.3 % (11.8-14.3); White Blood Cell 5.6 10^3/uL (4.4-10.8)
[2019-02-14 12:21] LABS: Albumin 2.6 g/dL (3.4-5.0); Calcium 8.4 mg/dL (8.5-10.1); Potassium 3.5 mmol/L (3.5-5.1)
[2019-02-14 12:26] LABS: BUN/Creatinine Ratio 12.5; Bilirubin, Total 0.4 mg/dL (0.2-1.0); Total Protein 6.7 g/dL (6.4-8.2)
[2019-02-14] MEDS ORDERED: SODIUM CHLORIDE 0.9% 1,000 ML IVB ONE ×2 (12:50→14:09)
[2019-02-14 12:51] LABS: Urine Bacteria NONE SEEN /hpf (None Seen); Urine Blood Negative /uL (Negative); Urine Specific Gravity 1.002 (1.001-1.035); Urine WBC 2 /hpf (0 - 5)
[2019-02-14 13:29] LABS: Basophils # (auto) 0 uL; Basophils % (auto) 0.7 % (0.0-2.0); Eosinophils # (auto) 0.3 uL; Eosinophils % (auto) 5.3 % (0.0-7.0); Hematocrit 32.7 % (36.0-46.0); Hemoglobin 10.4 g/dL (12.2-16.2); Lymphocytes # (auto) 1.2 uL; Lymphocytes % (auto) 20.3 % (10.0-50.0); Mean Corpuscular Hemoglobin 27.1 pg (28.0-32.0); Mean Corpuscular Hgb Conc. 31.9 g/dL (32.0-36.0); Mean Corpuscular Volume 84.9 fL (80.0-100.0); Monocytes # (auto) 0.5 uL; Monocytes % (auto) 9.6 % (0.0-12.0); Neutrophils # (auto) 3.6 uL; Neutrophils % (auto) 64.1 % (37.0-80.0); Platelet Count (auto) 252 10^3/uL (140-450); Red Blood Cells 3.86 10^6/uL (4.0-5.20); Red Cell Distribution Width 17.1 % (11.8-14.3); White Blood Cell 5.7 10^3/uL (4.4-10.8)
[2019-02-14 13:50] LABS: Albumin 2.6 g/dL (3.4-5.0); Calcium 8.1 mg/dL (8.5-10.1); Magnesium 2.4 mg/dL (1.6-2.6); Potassium 3.8 mmol/L (3.5-5.1)
[2019-02-14 13:56] LABS: BUN/Creatinine Ratio 16.1; Bilirubin, Total 0.3 mg/dL (0.2-1.0); Total Protein 6.8 g/dL (6.4-8.2)
[2019-02-14] MEDS ORDERED: cefTRIAXone 1GM/50ML D5W 50 ML IV ONE (14:15)
[2019-02-14] MEDS ORDERED: NITROGLYCERIN 0.4 MG SL TAB SL PRN (18:30)
[2019-02-14] MEDS ORDERED: ALPRAZolam 0.25 MG TAB PO PRN (18:30)
[2019-02-14] MEDS ORDERED: MORPHINE SULF INJ 2 MG/ML SYRINGE 1ML IV PRN (18:30)
[2019-02-14] MEDS: LEVETIRACETAM 500 MG TAB PO SCH (22:07)
[2019-02-15] MEDS: PIPERACILLIN-TAZOB 3.375GM 100 ML IV SCH ×4 (00:55→18:10)
[2019-02-15] MEDS: ASPirin-EC 81 mg tab PO SCH (10:00)
[2019-02-15] MEDS: LEVETIRACETAM 500 MG TAB PO SCH ×2 (10:00→21:01)
[2019-02-15 10:18] VITALS: BP 140/76
--- NOTE | 2019-02-15 10:18 | NUR ---
Telemetry admit from ER: WES SMALL admitted to Telemetry unit after SBAR received. Patient oriented to RICARDO HURD, RN primary RN, unit, room, bed, and unit policies regarding patient care and visiting hours. Patient is currently A&Ox0. Patient now on continuous telemetry monitoring, tele box # 10. Patient placed on bedside oxygen, weighed by bedscale and encouraged to call if they need something. All questions and concerns addressed, patient verbalized understanding.
--- NOTE | 2019-02-15 11:20 | NUR ---
Full skin assessment is complete with wound care nurse at bedside. All photos taken by wound care nurse. See notes on dressing changes.
--- NOTE | 2019-02-15 11:33 | NUR ---
WOUND CARE NOTE: Wound care in to see patient per wound care request regarding multiple wounds that are noted present on admission. Patient is 88 y/o female with admitting diagnosis of Pneumonia. Patient with history of Seizure, Brain Tumor, Hyperlipidemia, DVT, Dementia, Recurrent UTI. Patient is resting on air bed in Rm. 245A. Patient is awake and non-verbal. Patient appears to be in no pain using Arteaga Garcia Faces Pain Scale. Patient is bed bound, max assist in turning and repositioning and total care in ADL. Her Jameel score is 14. Skin/wound assessment done with the assistance of patient's nurse RN Brittany. Patient noted with multiple wounds in various stages. Patient's distal medial sacrum at coccyx area has 2.5x1.5x0.5 cm open full thickness ulceration. Wound bed is red with yellow slough, palpable bone noted, abhi wound is dark red, minimal serous drainage noted, no odor noted. Coccyx pressure injury is consistent with Stage 4 pressure injury. Patient's R medial knee has 6x4cm Unstageable pressure injury. Wound is covered with brown necrotic tissue,abhi wound is dark red, no drainage/odor noted. Cleanse patient's coccyx and Rt medial knee wounds with wound cleanser, patted dry with gauze and covered with Opti foam gentle dressing. Patient documented with multiple Deep Tissue Injury to RLE on last admission from ill fitting cast/splint. DTI to Rt lateral malleolus (3x2.2cm) looks evolving to hard necrotic tissue, covered with dark red hard necrotic tissue. Rt distal lateral foot has 2x2cm intact DTI. Multiple blanchable redness noted to her Rt lateral 5th toe, Rt posterolateral back, L hip, L lateral malleolus. Dry , resolving scabbed wounds noted to her R posterior thigh, L lateral elbow. Her R foot toes has redness with scabs, area is clean and dry, left open to air. Photograph of patient's wounds are taken for reference. Repositioned patient for comfort facing her Lt. side, redistributed pressure points with pillows. Patient tolerated well. Bed in low position, bed alarm on. RECOMMENDATION: Nursing to continue with Daily/PRN dressing change to sacral and R medial knee wounds, BID/PRN cleaning and application of Barrier cream to lower buttocks and perineum as preventative per MD order, dietary consult , frequent turning and repositioning schedule as condition permits, redistribute pressure points with pillows,air mattress, Wilson foam boots to BLE/elevate heels on pillows, continue monitoring by wound care while patient is hospitalized. Addendum: 02/15/19 at 1655 by Pam Grey RN Amended: Links added.
--- NOTE | 2019-02-15 12:05 | NUR ---
Family at bedside. Educated on POC as of this time. Son states "she can take all her medications, and eat her meals just fine." Per ED nurse morning medications were held because patient was unable to swallow and was A&Ox0. Will continue to monitor patient.
[2019-02-15 13:00] VITALS: BP 132/51
--- NOTE | 2019-02-15 13:42 | NUR ---
Patient did not receive tray for lunch. Dietary called and said a tray was sent. Unable to find tray. Patient is sleeping at this time.
--- NOTE | 2019-02-15 15:20 | NUR ---
Family at bedside. Request charge nurse at this time.
--- NOTE | 2019-02-15 15:30 | NUR ---
Dr. Rosa contact. aware that family is requesting to see him regard patient.
[2019-02-15] MEDS ORDERED: IPRATROPIUM BROM 0.5 MG/2.5ML INH SOL NEB PRN (16:00)
[2019-02-15] MEDS ORDERED: ALBUTEROL SULF 2.5 MG/0.5ML(0.5%) NEB SOLN NEB PRN (16:00)
--- NOTE | 2019-02-15 16:44 | NUR ---
Side rails padded for patient safely.
[2019-02-15 17:00] VITALS: BP 138/61
--- NOTE | 2019-02-15 17:11 | NUR ---
MIDLINE ATTEMPT PATIENT UNABLE TO REMAIN STILL, PULLING AT STERILE FIELD. PRIMARY RN MADE AWARE.
--- NOTE | 2019-02-15 18:38 | NUR ---
Patient received dinner tray. Patient is asleep at this time.
--- NOTE | 2019-02-15 19:20 | NUR ---
MRSA swab collected and sent to lab.
--- NOTE | 2019-02-15 19:25 | NUR ---
Closing note: Patient asleep in bed, no S/S of pain, distress or SOB at this time. Side rails padded for patient safety. Care endorsed to [facility] IVANNA Buckner.
--- NOTE | 2019-02-15 19:40 | NUR ---
Opening Shift Note Assumed care of patient, responsive to name at times, son-in-law at bedside. No S/S of distress/SOB. Restless at times. Instructed on POC, son-in-law at bedside verbalized understanding, bed in lowest position, bed alarm on, will continue to monitor for changes Q1hr and PRN.
[2019-02-15 20:00] VITALS: BP 104/50
--- NOTE | 2019-02-15 21:10 | NUR ---
Son-in-law was upset stating that patient was not fed during the day. This RN explained that patient was sleeping most of the time and that there's a pending swallow evaluation to prevent aspiration. Son-in-law insisted that patient can eat and swallow. Son-in-law Reinaldo showed to this RN, fed patient and patient did swallow the mashed potatoes with strict aspiration precaution.
[2019-02-15 21:21] VITALS: BP 138/61
[2019-02-15 21:38] LABS: Basophils # (auto) 0 uL; Basophils % (auto) 0.8 % (0.0-2.0); Eosinophils # (auto) 0.2 uL; Eosinophils % (auto) 5.2 % (0.0-7.0); Hematocrit 32.8 % (36.0-46.0); Hemoglobin 10.3 g/dL (12.2-16.2); Lymphocytes # (auto) 1.3 uL; Lymphocytes % (auto) 28.1 % (10.0-50.0); Mean Corpuscular Hgb Conc. 31.4 g/dL (32.0-36.0); Monocytes # (auto) 0.4 uL; Monocytes % (auto) 8.5 % (0.0-12.0); Neutrophils # (auto) 2.7 uL; Neutrophils % (auto) 57.4 % (37.0-80.0); Nucleated Red Blood Cells % 0.1 %; Platelet Count (auto) 228 10^3/uL (140-450); Red Blood Cells 3.82 10^6/uL (4.0-5.20); Red Cell Distribution Width 17.2 % (11.8-14.3); White Blood Cell 4.6 10^3/uL (4.4-10.8)
[2019-02-15 21:58] LABS: Albumin 2.8 g/dL (3.4-5.0); BUN/Creatinine Ratio 16.4; Calcium 8.3 mg/dL (8.5-10.1); Potassium 3.6 mmol/L (3.5-5.1)
[2019-02-15 22:00] VITALS: BP 104/50
[2019-02-15 22:01] LABS: Bilirubin, Total 0.3 mg/dL (0.2-1.0); Total Protein 6.6 g/dL (6.4-8.2)
--- NOTE | 2019-02-15 23:25 | NUR ---
Called lab for Influenza swab, per staff, they ran out of swab tonight. Will request tomorrow
[2019-02-16] MEDS: PIPERACILLIN-TAZOB 3.375GM 100 ML IV SCH ×4 (00:11→18:30)
--- NOTE | 2019-02-16 00:44 | NUR ---
RT NOTE: PT RESTING IN BED WITH NO RESPIRATORY DISTRESS NOTED AT THIS TIME. PT ON ROOM AIR SPO2 94% HR 78, RR 18. NO TX GIVEN AT THIS TIME.
--- NOTE | 2019-02-16 04:33 | NUR ---
Patient had a bowel movement, complete linen changed, sponge bath done, turned to her side and every 2 hours, will continue to monitor
[2019-02-16 05:59] VITALS: BP 123/85
[2019-02-16 06:41] LABS: Basophils # (auto) 0 uL; Basophils % (auto) 0.7 % (0.0-2.0); Eosinophils # (auto) 0.2 uL; Eosinophils % (auto) 4.9 % (0.0-7.0); Hematocrit 30.7 % (36.0-46.0); Hemoglobin 9.8 g/dL (12.2-16.2); Lymphocytes # (auto) 1.4 uL; Lymphocytes % (auto) 28.7 % (10.0-50.0); Mean Corpuscular Hemoglobin 27.2 pg (28.0-32.0); Mean Corpuscular Hgb Conc. 31.8 g/dL (32.0-36.0); Mean Corpuscular Volume 85.5 fL (80.0-100.0); Monocytes # (auto) 0.5 uL; Monocytes % (auto) 9.3 % (0.0-12.0); Neutrophils # (auto) 2.7 uL; Neutrophils % (auto) 56.4 % (37.0-80.0); Nucleated Red Blood Cells % 0.1 %; Platelet Count (auto) 225 10^3/uL (140-450); Red Blood Cells 3.58 10^6/uL (4.0-5.20); Red Cell Distribution Width 16.8 % (11.8-14.3); White Blood Cell 4.9 10^3/uL (4.4-10.8)
[2019-02-16 07:06] LABS: Potassium 3.2 mmol/L (3.5-5.1)
[2019-02-16 07:13] LABS: Albumin 2.7 g/dL (3.4-5.0); BUN/Creatinine Ratio 22.4; Bilirubin, Total 0.3 mg/dL (0.2-1.0); Calcium 8.1 mg/dL (8.5-10.1); Total Protein 6.4 g/dL (6.4-8.2)
--- NOTE | 2019-02-16 07:25 | NUR ---
Opening Shift Note Assumed care of patient, resting in bed with eyes closed. No S/S of distress/SOB or pain. Bed is set in lowest locked position, with seizure precautions in place for safety. Call light is within reach and side rails up x2. Will continue to monitor for changes Q1hr and PRN.
[2019-02-16 08:11] VITALS: BP 121/73
[2019-02-16 09:00] VITALS: BP 121/73
--- NOTE | 2019-02-16 09:48 | NUR ---
Respiratory note: Assessed pt for prn medneb tx. HR 72, RR 14, POX 97% on room air. Breath sounds clear/diminished throughout, no s/s of respiratory distress noted. Medneb tx not indicated at this time.
[2019-02-16] MEDS: LEVETIRACETAM 500 MG TAB PO SCH ×2 (10:53→22:45)
[2019-02-16] MEDS: ASPirin-EC 81 mg tab PO SCH (10:53)
[2019-02-16] MEDS: ENOXAPARIN SOD 40 MG/0.4 ML SYRINGE SC SCH (10:53)
--- NOTE | 2019-02-16 11:25 | NUR ---
NUTRITION CONSULT/ASSESSMENT NOTES Please refer to link notes of nutrition screen form filed under the intervention section of the plan of care for further details. Est. Needs: 1350 kcal to 1600 kcal (25-30 kcal/kgBW), 54 gms to 70 gms pro (1.0-1.3 gms/kgBW for wound healing). Will continue to monitor pertinent labs and reassess nutrient need prn Thank you for this consult. Addendum: 02/16/19 at [address] Amended: Links added.
--- NOTE | 2019-02-16 11:30 | NUR ---
Balaji Rosa, awaiting call back to report potassium level.
--- NOTE | 2019-02-16 12:50 | NUR ---
aware of potassium level Potassium level is 3.2, , Dr. Rosa is aware and no new orders were received at this time.
[2019-02-16 13:00] VITALS: BP 107/52
[2019-02-16 17:00] VITALS: BP 109/71
--- NOTE | 2019-02-16 19:25 | NUR ---
Endorsed care to NOC RN.
--- NOTE | 2019-02-16 20:00 | NUR ---
Opening Shift Note Assumed care of patient, patient lying in bed with eyes closed, moving hands, does not follow direction, aphasic, incomprehensible speech. On room air with even and unlabored respirations, no S/S of distress or SOB. Michaud secured and intact draining to gravity with yellow urine, no kinks noted. [place] boots on to bilateral legs. PIV to left upper forearm intact and patent, saline locked. No s/s of pain. Patient turned with max assistance, sacral Optifoam clean, dry, and intact. Optifoam to right knee clean, dry, and intact. Per GREIGE MENDER, patient consumed 75% of dinner with total assistance. Seizure precautions in place. Bed low locked position with side rails up x 3 and call light within reach, on specialty air mattress, bed alarm on. Will continue to monitor for changes Q1hr and PRN.
--- NOTE | 2019-02-16 20:30 | NUR ---
Respiratory note: PT ASSESSED FOR NEED OF PRN HHN TX. PRN HHN TX NOT INDICATED AT THIS TIME. HR 78 RR 18 SPO2 99% ON RA. PT EDUCATED ON USE OF NURSE CALL BUTTON FOR SOB.
[2019-02-16 22:00] VITALS: BP 115/64
--- NOTE | 2019-02-16 22:30 | NUR ---
Large soft bowel movement Patient incontinent of bowels, noted large soft brown bowel movement, cleansed patient, abhi care provided, complete linen changed, turned and repositioned patient. Patient tolerated well. Will continue to monitor Addendum: 02/17/19 at 0253 by Silva John RN RN Barrier cream applied to buttock and perineum.
--- NOTE | 2019-02-16 22:45 | NUR ---
Wound care done per orders to coccyx and right knee. patient tolerated well.
[2019-02-17] MEDS: PIPERACILLIN-TAZOB 3.375GM 100 ML IV SCH ×4 (00:02→17:34)
--- NOTE | 2019-02-17 02:00 | NUR ---
Bowel Movement noted small amount of soft brown bowel movement, cleansed patient, abhi care provided, barrier cream applied, partial linen changed, turned and repositioned patient. Patient tolerated well. Will continue to monitor
--- NOTE | 2019-02-17 05:45 | NUR ---
Unsuccessful lab draw per neurological surgeon, unsuccessful lab draw, states she will have another neurological surgeon draw labs on patient.
[2019-02-17 05:54] VITALS: BP 116/68
--- NOTE | 2019-02-17 06:20 | NUR ---
Respiratory note: HR 64, RR 14, SPO2 97% ON RA. RN AND TECH AT BEDSIDE CLEANING PT. NO SIGNS OR SYMPTOMS OF RESPIRATORY DISTRESS NOTED. PRN MED NEB TX NOT INDICATED AT THIS TIME.
--- NOTE | 2019-02-17 07:00 | NUR ---
Closing Note patient resting in bed with eyes closed, room air with even and unlabored respirations, no s/s of distress. IV intact and patent. Michaud intact and draining to gravity, no kinks. [place] boots on to bilateral legs. Bed low locked position with side rails up x 3 and call light within reach, bed alarm on. Seizure precautions in place. Endorsed care to day shift RN.
--- NOTE | 2019-02-17 07:30 | NUR ---
RECEIVED REPORT FROM NIGHT NURSE. PATIENT RESTING IN BED, NO DISTRESS NOTED. BED IN LOWEST POSITION, BED RAILS UP X2. WILL CONTINUE TO MONITOR.
--- NOTE | 2019-02-17 08:30 | NUR ---
AID AT BEDSIDE, FEEDING PATIENT BREAKFAST. BED IN HIGH POSITION, FOR ASPIRATION PRECAUTIONS. PATIENT TOLERATING FEEDING WELL. WILL CONTINUE TO MONITOR.
[2019-02-17 09:00] VITALS: BP 119/65
[2019-02-17] MEDS: ASPirin-EC 81 mg tab PO SCH (10:03)
[2019-02-17] MEDS: LEVETIRACETAM 500 MG TAB PO SCH ×2 (10:03→22:54)
[2019-02-17] MEDS: ENOXAPARIN SOD 40 MG/0.4 ML SYRINGE SC SCH (10:03)
[2019-02-17 10:49] LABS: Albumin 2.7 g/dL (3.4-5.0); Calcium 8.1 mg/dL (8.5-10.1); Potassium 3.5 mmol/L (3.5-5.1)
[2019-02-17 10:52] LABS: BUN/Creatinine Ratio 12.7; Bilirubin, Total 0.3 mg/dL (0.2-1.0); Total Protein 6.9 g/dL (6.4-8.2)
[2019-02-17 10:58] LABS: Basophils # (auto) 0.1 uL; Basophils % (auto) 1.1 % (0.0-2.0); Eosinophils # (auto) 0.2 uL; Eosinophils % (auto) 3.7 % (0.0-7.0); Hematocrit 32.1 % (36.0-46.0); Hemoglobin 10.4 g/dL (12.2-16.2); Lymphocytes # (auto) 1.3 uL; Lymphocytes % (auto) 25.9 % (10.0-50.0); Mean Corpuscular Hemoglobin 27.1 pg (28.0-32.0); Mean Corpuscular Hgb Conc. 32.5 g/dL (32.0-36.0); Mean Corpuscular Volume 83.3 fL (80.0-100.0); Monocytes # (auto) 0.5 uL; Neutrophils % (auto) 60.3 % (37.0-80.0); Nucleated Red Blood Cells % 0.4 %; Platelet Count (auto) 194 10^3/uL (140-450); Red Blood Cells 3.86 10^6/uL (4.0-5.20); Red Cell Distribution Width 16.7 % (11.8-14.3)
[2019-02-17 13:00] VITALS: BP 117/57
--- NOTE | 2019-02-17 13:00 | NUR ---
AID AT BEDSIDE, FEEDING PATIENT LUNCH. BED IN HIGH POSITION, FOR ASPIRATION PRECAUTIONS. PATIENT TOLERATING FEEDING WELL. WILL CONTINUE TO MONITOR.
--- NOTE | 2019-02-17 16:31 | NUR ---
SWALLOW EVAL COMPLETED. NO NEW DIET ORDERS/ CHANGES.
--- NOTE | 2019-02-17 16:33 | NUR ---
SWALLOW EVALUATED. PATIENT ABLE TO TOLERATE MECHANICAL SOFT TEXTURE WITH FINELY CHOPPED PROTEIN AND THIN LIQUIDS. PATIENT HAS NO TEETH OR DENTURES, APPEARS ALOC BUT ABLE TO SWALLOW. NURSING NOTIFIED.
[2019-02-17 17:00] VITALS: BP 133/87
--- NOTE | 2019-02-17 17:06 | NUR ---
assessment Patient is a 88 year old female who is confused. Prior to admission patient lived home with her son Reinaldo and family and functioned with assistance. Per Reinaldo patient will return home with him post discharge. Reinaldo informed me patient has a wheelchair, bedside commode, and a shower chair, and hospital bed for home use. Reinaldo informed me that he is patients [facility] caregiver. Reinaldo informed me patients PCP is Dr. Jackelin Rios. Patient is on service with [facility] for IV ABX. Patient will need a resumption order for home health. I informed Reinaldo he has a right to speak to a social worker clinical regarding all care. I informed Reinaldo ennis has a right to participate in any and all discharge planning. Reinaldo is aware of visiting hours on the hospital floor. I informed Reinaldo ennis has a right to privacy. Patient has an advanced directive and her POA is her son Reinaldo [phone]. Reinaldo verbalized understanding and agreed to discharge plan home. Addendum: 02/17/19 at 1708 by Indu SAENZ Amended: Links added.
--- NOTE | 2019-02-17 18:00 | NUR ---
PATIENT TURNED Q2 HOURS THROUGHOUT SHIFT.
--- NOTE | 2019-02-17 20:00 | NUR ---
Opening Shift Note Assumed care of patient, patient lying in bed with eyes closed, moving hands, does not follow direction, aphasic, incomprehensible speech. On room air with even and unlabored respirations, no S/S of distress or SOB. [place]aud secured and intact draining to gravity with yellow urine, no kinks noted. [place] boots on to bilateral legs. PIV to left upper forearm intact and patent, saline locked. No s/s of pain. Patient turned with max assistance, sacral Optifoam clean, dry, and intact. Optifoam to right knee clean, dry, and intact. Per WARDROBE ATTENDANT, patient consumed 75% of dinner with total assistance, tolerated well. Seizure precautions in place. Bed low locked position with side rails up x 3 and call light within reach, on specialty air mattress, bed alarm on. Will continue to monitor for changes Q1hr and PRN.
[2019-02-17 22:00] VITALS: BP 170/84
[2019-02-18] MEDS: PIPERACILLIN-TAZOB 3.375GM 100 ML IV SCH ×4 (00:38→17:45)
--- NOTE | 2019-02-18 02:16 | NUR ---
Respiratory note: NO PRN TX GIVEN, NOT INDICATED AT THIS TIME. SPO2 96% ON R/A, HR 73, RR 16. NO SOB NOTED.
[2019-02-18 05:00] VITALS: BP 131/53
--- NOTE | 2019-02-18 05:00 | NUR ---
Family updated on pt status Family of WES SMALL updated on patient's status and condition. All questions and concerns addressed. Reinaldo verbalized understanding.
--- NOTE | 2019-02-18 07:00 | NUR ---
Closing Note patient resting in bed with eyes closed, room air with even and unlabored respirations, no s/s of distress. IV intact and patent. Michaud intact and draining to gravity, no kinks. [place] boots on to bilateral legs. Patient was turned q2hrs throughout shift and tolerated well. Bed low locked position with side rails up x 3 and call light within reach, bed alarm on. Seizure precautions in place. Endorsed care to day shift RN.
--- NOTE | 2019-02-18 07:30 | NUR ---
RECEIVED REPORT FROM NIGHT NURSE. PATIENT RESTING IN BED, NO DISTRESS NOTED. BREATHING EVEN AND UNLABORED ON ROOM AIR. WILL CONTINUE TO MONITOR.
--- NOTE | 2019-02-18 08:30 | NUR ---
AID AT BEDSIDE, FEEDING PATIENT BREAKFAST. BED IN HIGH POSITION, FOR ASPIRATION PRECAUTIONS. PATIENT TOLERATING FEEDING WELL. WILL CONTINUE TO MONITOR.
[2019-02-18 09:10] VITALS: BP 128/59
[2019-02-18] MEDS: ASPirin-EC 81 mg tab PO SCH (09:44)
[2019-02-18] MEDS: ENOXAPARIN SOD 40 MG/0.4 ML SYRINGE SC SCH (09:45)
[2019-02-18] MEDS: LEVETIRACETAM 500 MG TAB PO SCH ×2 (09:45→23:15)
[2019-02-18 13:00] VITALS: BP 118/65
--- NOTE | 2019-02-18 13:00 | NUR ---
AID AT BEDSIDE, FEEDING PATIENT LUNCH. BED IN HIGH POSITION, FOR ASPIRATION PRECAUTIONS. PATIENT TOLERATING FEEDING WELL. WILL CONTINUE TO MONITOR.
--- NOTE | 2019-02-18 14:58 | NUR ---
Respiratory note: NO PRN TX GIVEN, NOT INDICATED AT THIS TIME. SPO2 99% ON R/A, HR 65, RR 18. NO SOB NOTED. INFORMED PT TO HIT CALL LIGHT IF SOB AND RT WILL BE PAGED.
--- NOTE | 2019-02-18 15:08 | NUR ---
Discharge planning per SS consult, patient has orders fro home health. Referral sent to [facility] [phone]. Received a follow up call from [facility] and was advised that they will accept this patient onto services upon discharge.
[2019-02-18 17:22] VITALS: BP 157/75
--- NOTE | 2019-02-18 18:00 | NUR ---
PATIENT TURNED Q2 HOURS THROUGHOUT SHIFT.
--- NOTE | 2019-02-18 19:10 | NUR ---
RT NOTE PT WAS SEEN BY RT FOR PRN HHN ASSESSMENT. PT IS AWAKE AND SITTING IN BED. NO SOB OR DISTRESS NOTED. HR 82, RR 16, BS CTA, POX 96% ON ROOM AIR. NO PRN TX INDICATED AT THIS TIME. CONT ORDERED Addendum: 02/18/19 at 2004 by Suellen Melton RT Amended: Links added.
--- NOTE | 2019-02-18 19:45 | NUR ---
Opening Shift Note Assumed care of patient, patient lying in bed with eyes closed, moving hands, does not follow direction, aphasic, incomprehensible speech. On room air with even and unlabored respirations, no S/S of distress or SOB. Michaud secured and intact draining to gravity with yellow urine, no kinks noted. [place] boots on to bilateral legs. PIV to left upper forearm intact and patent, saline locked. No s/s of pain. Patient turned with max assistance, sacral Optifoam clean, dry, and intact. Optifoam to right knee clean, dry, and intact. l. Seizure precautions in place. Bed low locked position with side rails up x 3 and call light within reach, on specialty air mattress, bed alarm on. Will continue to monitor for changes Q1hr and PRN.
[2019-02-18 22:00] VITALS: BP 148/76
[2019-02-18 22:13] VITALS: BP 157/75
--- NOTE | 2019-02-18 22:30 | NUR ---
Bowel Movement noted ondina amount of soft brown bowel movement, cleansed patient, abhi care provided, barrier cream applied, optifoam applied to sacrum, full linens changed, turned and repositioned patient. Patient tolerated well. Will continue to monitor
[2019-02-19] MEDS: PIPERACILLIN-TAZOB 3.375GM 100 ML IV SCH ×3 (00:15→12:00)
[2019-02-19 05:00] VITALS: BP 154/73
--- NOTE | 2019-02-19 06:00 | NUR ---
Family updated on pt status Family of WES SMALL updated on patient's status and condition. All questions and concerns addressed. Reinaldo verbalized understanding.
[2019-02-19 06:39] LABS: Albumin 2.8 g/dL (3.4-5.0); BUN/Creatinine Ratio 27.6; Bilirubin, Total 0.3 mg/dL (0.2-1.0); Calcium 8.5 mg/dL (8.5-10.1); Total Protein 7.3 g/dL (6.4-8.2)
--- NOTE | 2019-02-19 06:55 | NUR ---
Closing Note patient resting in bed with eyes closed, room air with even and unlabored respirations, no s/s of distress. Michaud intact and draining to gravity, no kinks. [place] boots on to bilateral legs. Patient was turned q2hrs throughout shift and tolerated well. Bed low locked position with side rails up x 3 and call light within reach, bed alarm on. Seizure precautions in place.
--- NOTE | 2019-02-19 07:20 | NUR ---
Opening Shift Note Assumed care of patient. No S/S of distress/SOB or pain. Will continue to monitor for changes Q1hr and PRN.
[2019-02-19 08:00] VITALS: BP 115/56
[2019-02-19 09:10] VITALS: BP 115/56
--- NOTE | 2019-02-19 09:11 | NUR ---
RT NOTE: WENT TO PTS ROOM TO ASSESS FOR PRN BREATHING TX, NO S/S OF SOB. HR 77, RR 16, SPO2 96% ON RA, NO INDICATION FOR TX AT THIS TIME. WILL CONTINUE TO MONITOR PT.
[2019-02-19] MEDS: ASPirin-EC 81 mg tab PO SCH (10:17)
[2019-02-19] MEDS: ENOXAPARIN SOD 40 MG/0.4 ML SYRINGE SC SCH (10:18)
[2019-02-19] MEDS: LEVETIRACETAM 500 MG TAB PO SCH (10:18)
--- NOTE | 2019-02-19 11:02 | NUR ---
Gave patient a bed bath full linen change
[2019-02-19 13:00] VITALS: BP 132/63
--- NOTE | 2019-02-19 13:55 | NUR ---
D/C Planning Per consult to arrange transportation home. Contact [facility] Ph:) faxed transportation request form to arrange transport time at 14:00 via [employer]. Per IVANNA Baron family stated if it can be arrange for later today due to them not being home and wont make it on time. 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 Followed up call to Reinaldo Ph:) advised him transportation time will be here at 17:00 to transport patient home. Reinaldo verbalize understanding. Per Olena from [facility] transportation time has been arrange at 17:00 with [employer] Ph:). Informed IVANNA Baron. Addendum: 02/19/19 at 1400 by DAYTON HOGAN Amended: Links added.
[2019-02-19 16:49] VITALS: BP 137/65
--- NOTE | 2019-02-19 17:10 | NUR ---
Discharge from Tele Discharge instructions given as ordered. Encourage to follow up with PMD as instructed. All questions and concerns addressed. Patient verbalized understanding. Medication reconciliation form completed and copy given to patient. Home medications held in Pharmacy returned to patient, and needed vaccines given. IV removed with catheter intact, pressure dressing applied, castro catheter removed. Telemetry unit returned to ICU. Patient transported out via gurney by [facility] transport. Shandra- daughter notified of transport. No distress noted at time of departure.
== END 2019-02-19 17:10 | disposition home or self-care (01) | DRG 177 ==
LOC: EDBD 10:33 → ER 10:33 → TELE 10:34 → TELE-EAST 02-15 11:09
PROVIDERS: ADMIT Internal Medicine; ATTEND Internal Medicine
DX: J69.0 Pneumonitis due to inhalation of food and vomit (principal); G93.41 Metabolic encephalopathy; J98.11 Atelectasis; N39.0 Urinary tract infection, site not specified; I50.22 Chronic systolic (congestive) heart failure; I11.0 Hypertensive heart disease with heart failure; E78.5 Hyperlipidemia, unspecified; F02.80 Dementia in other diseases classified elsewhere, unspecified severity, without behavioral disturbance, psychotic disturbance, mood disturbance, and anxiety; G30.9 Alzheimer's disease, unspecified; G40.909 Epilepsy, unspecified, not intractable, without status epilepticus; L89.152 Pressure ulcer of sacral region, stage 2; R62.7 Adult failure to thrive; Z68.22 Body mass index [BMI] 22.0-22.9, adult; Z74.01 Bed confinement status; Z87.440 Personal history of urinary (tract) infections; Z90.49 Acquired absence of other specified parts of digestive tract; Z79.899 Other long term (current) drug therapy; Z86.718 Personal history of other venous thrombosis and embolism; Z79.01 Long term (current) use of anticoagulants
CPT/HCPCS: 36415; 71045; 80053; 81001; 83605; 83735; 84484; 85025; 87040; 87081; 87804; 92610; 93005; 93971; G0378; J0696; J2543